=== PATIENT | female | born 1995 | race Caucasian/White ===

== ENCOUNTER 2016-09-21 03:57 | Emergency (ER) | payer OTHER ==
[~2016-09-21] VITALS: Ht 162.6 cm; Wt 116.2 kg
[2016-09-21 04:02] VITALS: TEMP 36.8; Ht 162.6 cm; Wt 116.2 kg
[2016-09-21] MEDS ORDERED: ONDANSETRON INJ 2 MG/ML 2 ML VIAL IV STA (04:17)
[2016-09-21 04:25] LABS: HEMATOCRIT 39.2 % (37-47); MEAN CORPUSCULAR HEMOGLOBIN 29.1 pg (25-34); MEAN CORPUSCULAR HGB CONC 34.2 g/dl (32-36); MEAN PLATELET VOLUME 12.4 fL (7.4-10.4); PLATELET COUNT 197 K/uL (130-400); RED BLOOD COUNT 4.61 M/uL (4.2-5.4); WHITE BLOOD COUNT 17.23 K/uL (4.8-10.8)
[2016-09-21] MEDS ORDERED: SODIUM CHLORIDE 0.9% 1000ML 1,000 ML IV ONE ×2 (04:30)
[2016-09-21 04:42] LABS: BUN/CREATININE RATIO 14.8 (10-20); CALCIUM 8.7 mg/dl (8.5-10.1); CREATININE 0.72 mg/dl (0.60-1.20)
[2016-09-21 04:44] LABS: BASO % 0.1 %; BASO ABS # 0.01 K/uL (0-0.2); COMPLETE YES; EOS % 0.2 %; IG% 0.4 %; LYMPH % 4.4 %; LYMPH ABS # 0.76 K/uL (1.2-3.4); NEUT % 90.9 %
[2016-09-21 04:45] LABS: ALB/GLOB RATIO 0.6 (0.9-2)
[2016-09-21] MEDS ORDERED: ONDANSETRON 8 MG/54 ML D5W ONE (04:48)
[2016-09-21 06:16] LABS: URINE APPEARANCE CLOUDY (CLEAR); URINE COLOR DK YELLOW; URINE EPITHELIAL CELL AUTO >30 /lpf (0-5); URINE NITRITE NEG (NEG); URINE PH 5.5 (4.5-7.5); URINE SPECIFIC GRAVITY 1.042 (1.000-1.030); UROBILINOGEN NEG (NEG); ZZUR CULT IF INDIC CLEAN CATCH YES
[2016-09-21 06:42] LABS: MANUAL MICROSCOPIC REQUIRED? NO; REVIEW REQ? YES
[2016-09-21 06:46] LABS: URINE BILIRUBIN NEG (NEG)
[2016-09-21] MEDS ORDERED: ONDA4TAB10 SL (07:01)
--- NOTE | 2016-09-21 10:34 | EMERGENCY ROOM VISIT NOTE ---
ED Visit Note First contact with patient: 09:34 Patient was signed out to me at shift change at 0700 hrs. on 09/21/2016 by Eliel Brand PA-C. The patient was reassessed multiple times and had normal saline infused. She was reassessed and noted to be feeling much better. She had not vomited since shift change nor has she developed any abdominal pain. Patient stated that she felt as if she was able to go home. I believe this is reasonable. Patient was educated upon worrisome symptoms in which to return. Patient had questions answered prior to discharge and was discharged home in good condition.
[2016-09-21 11:04] VITALS: BP 161/87; PULSE 97; O2SAT 100
--- NOTE | 2016-09-23 12:53 | EMERGENCY ROOM VISIT NOTE ---
History First contact with patient: 04:07 Chief Complaint: VOMITING Stated Complaint: VOMITING Nursing Triage Summary: Abdominal pain and vomitting since 1900. 35 weeks . History of Present Illness The patient is a 21 year old female who presents to the Emergency Room with complaints of vomiting that began 9 hours ago. The patient is having several episodes of emesis every hour. She is 35 weeks with an uncomplicated gestation to this point. The patient does not have abdominal pain, vaginal drainage, discharge, or bleeding. She does not have fever or chills. The patient is considered otherwise usually healthy and rates her discomfort an 8/ 10. Review of Systems More than 10 systems were reviewed and otherwise negative with the exception of history of present illness. Past Medical/Surgical History Medical Problems: (1) No Known Active Medical Problems Family History Patient reports no known family medical history. Social History Smoking Status: Never Smoker Marital Status: in relationship Occupation Status: unemployed Current/Historical Medications Scheduled Ondasetron Odt (Zofran Odt), 4 MG SL Q6H Allergies Coded Allergies: No Known Allergies (Unverified , 09/21/16) Physical Exam Vital Signs Date Time Temp Pulse Resp B/P Pulse Ox O2 Delivery O2 Flow Rate FiO2 09/21/16 11:04 97 18 161/87 100 09/21/16 09:40 95 18 100/74 96 Room Air 09/21/16 08:00 91 20 130/71 96 Room Air 09/21/16 06:40 87 18 134/81 97 Room Air 09/21/16 05:22 98 18 134/88 96 Room Air 09/21/16 04:02 36.8 101 16 136/81 97 Room Air Pain Rating (0-10): 0 Physical Exam VITALS: Vitals are noted on the nurse's note and reviewed by myself. Vital signs stable. GENERAL: Well-developed, well-nourished, white female who is actively vomiting on my arrival to her room. Patient is cooperative with the examination. HEAD: Normocephalic atraumatic. HEART: Regular rate and rhythm without murmurs gallops or rubs. LUNGS: Clear to auscultation bilaterally without wheezes, rales or rhonchi. No retractions or accessory muscle use. ABDOMEN: Positive normal bowel sounds x 4. Soft and consistent with 35 week gestation. No palpable tenderness appreciated. No CVA tenderness. MUSCULOSKELETAL: No muscle atrophy, erythema, or edema noted. Full range of motion without joint tenderness in all extremities. No tenderness to palpation. Normal gait. Strength 5/5 throughout. NEURO: Patient was alert and oriented to person place and time. CN II through XII grossly intact. Medical Decision & Procedures Laboratory Results 09/21/16 04:15 Red Blood Count 4.61, Mean Corpuscular Volume 85.0, Mean Corpuscular Hemoglobin 29.1, Mean Corpuscular Hemoglobin Concent 34.2, Mean Platelet Volume 12.4, Neutrophils (%) (Auto) 90.9, Lymphocytes (%) (Auto) 4.4, Monocytes (%) (Auto) 4.0, Eosinophils (%) (Auto) 0.2, Basophils (%) (Auto) 0.1, Neutrophils # (Auto) 15.67, Lymphocytes # (Auto) 0.76, Monocytes # (Auto) 0.69, Eosinophils # (Auto) 0.03, Basophils # (Auto) 0.01 09/21/16 04:15 Test 09/21/16 04:05 09/21/16 04:15 Urine Color DK YELLOW Urine Appearance CLOUDY (CLEAR) Urine pH 5.5 (4.5-7.5) Urine Specific [place] 1.042 (1.000-1.030) Urine Protein TRACE (NEG) Urine Glucose (UA) NEG (NEG) Urine Ketones 3+ (NEG) Urine Occult Blood NEG (NEG) Urine Nitrite NEG (NEG) Urine Bilirubin NEG (NEG) Urine Urobilinogen NEG (NEG) Urine Leukocyte Esterase MODERATE (NEG) Urine WBC (Auto) >30 /hpf (0-5) Urine RBC (Auto) 0-4 /hpf (0-4) Urine Hyaline Casts (Auto) /lpf (0-5) Urine Epithelial Cells (Auto) >30 /lpf (0-5) Urine Bacteria (Auto) 1+ (NEG) Urine Pathogenic Casts /lpf (0) White Blood Count 17.23 K/uL (4.8-10.8) Red Blood Count 4.61 M/uL (4.2-5.4) Hemoglobin 13.4 g/dL (12.0-16.0) Hematocrit 39.2 % (37-47) Mean Corpuscular Volume 85.0 fL (80-100) Mean Corpuscular Hemoglobin 29.1 pg (25-34) Mean Corpuscular Hemoglobin Concent 34.2 g/dl (32-36) Platelet Count 197 K/uL (130-400) Mean Platelet Volume 12.4 fL (7.4-10.4) Neutrophils (%) (Auto) 90.9 % Lymphocytes (%) (Auto) 4.4 % Monocytes (%) (Auto) 4.0 % Eosinophils (%) (Auto) 0.2 % Basophils (%) (Auto) 0.1 % Neutrophils # (Auto) 15.67 K/uL (1.4-6.5) Lymphocytes # (Auto) 0.76 K/uL (1.2-3.4) Monocytes # (Auto) 0.69 K/uL (0.11-0.59) Eosinophils # (Auto) 0.03 K/uL (0-0.5) Basophils # (Auto) 0.01 K/uL (0-0.2) RDW Standard Deviation 42.7 fL (36.4-46.3) RDW Coefficient of Variation 13.9 % (11.5-14.5) Immature Granulocyte % (Auto) 0.4 % Immature Granulocyte # (Auto) 0.07 K/uL (0.00-0.02) Anion Gap 12.0 mmol/L (3-11) Est Creatinine Clear Calc Drug Dose 153.5 ml/min Estimated GFR () 137.8 Estimated GFR (Non- 118.9 BUN/Creatinine Ratio 14.8 (10-20) Calcium Level 8.7 mg/dl (8.5-10.1) Total Bilirubin 0.7 mg/dl (0.2-1) Aspartate Amino Transf (AST/SGOT) 15 U/L (15-37) Alanine Aminotransferase (ALT/SGPT) 17 U/L (12-78) Alkaline Phosphatase 173 U/L (45-117) Total Protein 7.5 gm/dl (6.4-8.2) Albumin 2.7 gm/dl (3.4-5.0) Globulin 4.8 gm/dl (2.5-4.0) Albumin/Globulin Ratio 0.6 (0.9-2) Date/Time Source Procedure Growth Status 09/21/16 04:05 Urine , Clean Catch Urine Culture - Final MORE THAN THREE TYPES OF ORGANISMS ND... Complete Medications Administered Medications (Trade) Dose Ordered Sig/Sarath Route Start Time Stop Time Status Last Admin Dose Admin Sodium Chloride 1,000 ml @ 999 mls/hr Q1H1M ONCE IV 09/21/16 04:30 09/21/16 05:30 DC 09/21/16 04:50 999 MLS/HR Sodium Chloride (Nss 1000ml) 1,000 ml @ 999 mls/hr Q1H1M ONCE IV 09/21/16 04:30 09/21/16 05:30 DC 09/21/16 04:50 999 MLS/HR Ondansetron HCl (Zofran 8mg Iv) 8 mg STK-MED ONCE .ROUTE 09/21/16 04:48 09/21/16 04:49 DC 09/21/16 04:53 8 MG ED Course Physical exam and history were performed. Nursing notes and EMR were reviewed. Patient appears to have nausea and vomiting that began a few hours ago. IV access was established and the patient was hydrated with 2 L normal saline and given 8 mg IV Zofran. Blood work was obtained and is as above. She does have an elevated white blood cell count. She does not have a significant anemia for , bandemia, or significant electrolyte imbalance. Urine is without obvious signs of infection. On reevaluation the patient nausea was significantly improved. She did not have recurrent emesis here in the department. I do not suspect that her symptoms are distinctly related to her and she does not have abdominal pain. She likely has a foodborne illness or viral etiology. The patient IV fluids were very slow to infuse, the patient was in stable condition up until the time of shift change. I discussed the case with Moise Sandhu PA-C, who will assume care at this time. If the patient feels well, that she should be stable for discharge home with a course of Zofran. Please see Mr Sandhu's dictation for further care and disposition. The chart was completed utilizing [employer] Voice Recognition Software. Grammatical errors, random word insertions, pronoun errors, and incomplete sentences are an occasional consequence of this system due to software limitations, ambient noise, and hardware issues. Any formal questions or concerns about the content, text, or information contained within the body of this dictation should be directly addressed to the provider for clarification. . Medical Decision Differential diagnosis: Etiologies such as gastroenteritis, food borne illness, infections, appendicitis , diverticulitis, inflammatory bowel disease, obstruction, GI bleed, biliary pathology, as well as others were entertained. Impression Primary Impression: Vomiting during Departure Information Dispostion Home / Self-Care Condition GOOD Prescriptions Ondasetron Odt (ZOFRAN ODT) 4 Mg Tab 4 MG SL Q6H for Nausea, #12 TAB Prov: Eliel Brand PA-C 09/21/16 Forms HOME CARE DOCUMENTATION FORM, IMPORTANT VISIT INFORMATION Patient Instructions A Signature Page, [facility] Additional Instructions You were seen and evaluated today on an emergency basis only. This is not a substitute for, or an effort to provide, complete comprehensive medical care. It is not possible to recognize and treat all injuries or illnesses in a single emergency department visit. For this reason it is recommended that you followup with your primary care physician and DAIRY HUSBANDMAN this week for ongoing care and evaluation. Zofran 1 tablet every 6 hrs as needed for nausea. Drink plenty of fluids and remain well hydrated. You are welcome to return to the emergency department anytime with new, worsening, or concerning symptoms.
[2016-11-13] MEDS ORDERED: SENN-65 PO (10:19)
== END 2016-09-21 11:06 | disposition home or self-care (01) ==
LOC: C.EDB 03:58 → C.EDA 11:06
DX: O21.2 Late vomiting of pregnancy (principal); Z3A.35 35 weeks gestation of pregnancy

== ENCOUNTER → 2016-09-29 | Outpatient (CLI) | payer OTHER ==
[~2016-09-29] MED LIST: HYDR-5688 PO; ONDA4TAB10 SL; PRENTAB26 PO; SENN-65 PO; SULF800T23 PO
== END | disposition home or self-care (01) ==
LOC: C.LABSPEC 11:10
PROVIDERS: ATTEND Obstetrics & Gynecology
DX: Z34.03 Encounter for supervision of normal first pregnancy, third trimester (principal)

== ENCOUNTER 2016-10-01 13:31 | Inpatient (IN) | payer OTHER ==
[~2016-10-01] VITALS: Ht 160 cm; Wt 104.0 kg
[~2016-10-01 13:31] MED LIST changes: -HYDR-5688 PO; -PRENTAB26 PO; -SENN-65 PO; -SULF800T23 PO
[2016-10-01 14:30] VITALS: Ht 160 cm; Wt 104.0 kg
[2016-10-01] MEDS ORDERED: LACTATED RINGER'S 1000ML 1,000 ML IV PRN (16:47)
[2016-10-01] MEDS ORDERED: LACTATED RINGER'S 1000ML 1,000 ML IV SCH (16:47)
[2016-10-01] MEDS ORDERED: BUTORPHANOL TARTRATE 1 MG/ML VIAL IV PRN (17:00)
[2016-10-01 17:14] LABS: HEMATOCRIT 34.4 % (37-47); MEAN CELL VOLUME 82.9 fL (80-100); MEAN CORPUSCULAR HGB CONC 33.7 g/dl (32-36); PLATELET COUNT 214 K/uL (130-400); RED BLOOD COUNT 4.15 M/uL (4.2-5.4); WHITE BLOOD COUNT 10.71 K/uL (4.8-10.8)
[2016-10-01] MEDS ORDERED: PRENTAB26 PO (18:27)
--- NOTE | 2016-10-01 21:42 | Discharge Instructions ---
Discharge Instructions Admission Reason for Admission: Check Labor Discharge Discharge Diagnosis / Problem: uterine contractions Discharge Goals Goal(s): Continuing OB care Activity Recommendations Activity Limitations: resume your previous activity . Instructions / Follow-Up Instructions / Follow-Up SPECIAL CARE INSTRUCTIONS: Call Doctor if: * Regular contractions every 5 minutes or greater than 5 contractions in one hour. * Bleeding * Water breaks or is leaking * Decreased movement * Fever >100.4 degrees F * Pain not relieved by routine measures or pain medication ordered. FOLLOW UP VISIT: Return to Labor and Delivery on for /call for appointment time . Follow-up Visit with: When: Current Hospital Diet Patient's current hospital diet: Discharge Diet Recommended Diet: Regular OB Diet Pending Studies Studies pending at discharge: no Medical Emergencies . Who to Call and When: Medical Emergencies: If at any time you feel your situation is an emergency, please call 911 immediately. . Non-Emergent Contact Non-Emergency issues call your: Net Developer Architect . . "Provider Documentation" section prepared by Demetria Winters. VTE Core Measure Inpt VTE Proph given/why not?: Treatment not indicated
--- NOTE | 2016-10-05 12:49 | DISCHARGE SUMMARY ---
PRINCIPAL DIAGNOSIS: The patient is a 21-year-old G1, P0 white female who presented at 36 and 3/7 weeks with increasing pelvic pain and irregular contractions. She had minimal cervical dilation during her stay after walking for several hours. heart tones were category 1. Contractions were somewhat irregular. Cervix went from 2-3 cm to 3 cm dilated. There was descent of the head from -1 to 0 station. The patient was thought to be in early labor so admission was begun. She was given IV fluids and then 1 mg of IV Stadol. She fell asleep and contractions stopped. Cervix was relatively unchanged post the Stadol and patient is requesting to go home. She was sent home with the usual instructions of when to call for labor symptoms or decreased movement bleeding or leaking fluid. The patient expressed understanding of these and all questions were answered.
[2016-11-13] MEDS ORDERED: SENN-65 PO (10:19)
== END 2016-10-01 21:57 | disposition home or self-care (01) | DRG 782 ==
LOC: C.OPB 13:31 → C.LD 13:32 → C.OPB 16:51 → C.LD 16:51
PROVIDERS: ADMIT Obstetrics & Gynecology; ATTEND Obstetrics & Gynecology
DX: O62.9 Abnormality of forces of labor, unspecified (principal); Z3A.36 36 weeks gestation of pregnancy

== ENCOUNTER 2016-10-02 03:56 | Outpatient (CLI) | payer OTHER ==
[~2016-10-02] VITALS: Ht 160 cm; Wt 116.8 kg
[~2016-10-02 03:56] MED LIST changes: -ONDA4TAB10 SL; +PRENTAB26 PO
[2016-10-02 04:02] VITALS: Ht 160 cm; Wt 116.8 kg
[2016-10-02] MEDS ORDERED: NURSING VERBAL MED ORDER ONE (04:45)
--- NOTE | 2016-10-04 14:24 | EDITING REQUIRED CODING QUERY ---
DIAGNOSIS NEEDED To promote full compliance with coding requirements relating to patient care, physician participation is requested in all cases of director agency & strategic partnerships uncertainty. Please assist us with the question(s) below: Coding Question: The patient received care in labor and delivery on 10/02/16 as noted within the record. Please document the diagnosis that is being addressed by the medication/treatment. Provider Response: DIAGNOSIS: pelvic pain at 36 weeks gestation Irregular uterine contractions Thank you for your assistance, Marissa Stephenson - Ear Muff Assembler
[2016-11-13] MEDS ORDERED: SENN-65 PO (10:19)
== END 2016-10-02 09:17 | disposition home or self-care (01) ==
LOC: C.OPB 03:56 → C.LD 03:56 → C.OPB 09:17
PROVIDERS: ATTEND Obstetrics & Gynecology
DX: O62.9 Abnormality of forces of labor, unspecified (principal); R10.2 Pelvic and perineal pain; Z3A.36 36 weeks gestation of pregnancy

== ENCOUNTER 2016-10-03 04:42 | Outpatient (CLI) | payer OTHER ==
[~2016-10-03] VITALS: Ht 160 cm; Wt 113.6 kg
[2016-10-03 04:49] VITALS: Ht 160 cm; Wt 113.6 kg
[2016-10-03] MEDS ORDERED: LACTATED RINGER'S 1000ML 1,000 ML IV SCH (05:20)
[2016-10-03] MEDS ORDERED: LACTATED RINGER'S 1000ML 500 ML IV ONE (05:20)
[2016-11-13] MEDS ORDERED: SENN-65 PO (10:19)
== END 2016-10-03 09:07 | disposition home or self-care (01) ==
LOC: C.LD 04:42 → C.OPB 04:42
PROVIDERS: ATTEND Obstetrics & Gynecology
DX: O99.89 Other specified diseases and conditions complicating pregnancy, childbirth and the puerperium (principal); M54.5 Low back pain; Z3A.37 37 weeks gestation of pregnancy

== ENCOUNTER 2016-10-13 00:55 | Inpatient (IN) | payer OTHER ==
[~2016-10-13] VITALS: Ht 160 cm; Wt 119.5 kg
[2016-10-13] MEDS ORDERED: LACTATED RINGER'S 1000ML 1,000 ML IV PRN (01:15)
[2016-10-13] MEDS ORDERED: LACTATED RINGER'S 1000ML 1,000 ML IV SCH (01:15)
[2016-10-13] MEDS ORDERED: EpHEDrine SULFATE INJ 50 MG/ML AMP ONE (01:28)
[2016-10-13] MEDS ORDERED: BUPIVACAINE 0.25% 30 ML VIAL ONE (01:28)
[2016-10-13] MEDS ORDERED: FENTANYL 2MCG/ML ROPIV 1.25MG/ML 100ML BAG EPI ONE (01:28)
[2016-10-13] MEDS ORDERED: FENTANYL CITRATE INJ 50 MCG/1 ML 2 ML VIAL ONE (01:29)
[2016-10-13 01:35] LABS: HEMATOCRIT 35.2 % (37-47); MEAN CELL VOLUME 83.4 fL (80-100); MEAN CORPUSCULAR HEMOGLOBIN 28.2 pg (25-34); MEAN CORPUSCULAR HGB CONC 33.8 g/dl (32-36); MEAN PLATELET VOLUME 11.9 fL (7.4-10.4); PLATELET COUNT 301 K/uL (130-400); RED BLOOD COUNT 4.22 M/uL (4.2-5.4); WHITE BLOOD COUNT 15.43 K/uL (4.8-10.8)
[2016-10-13] MEDS ORDERED: LACTATED RINGER'S 1000ML 500 ML IV PRN (02:14)
[2016-10-13] MEDS ORDERED: NALOXONE HCL INJ 1 MG in SODIUM CHLORIDE 0.9% 1000ML 1,000 ML IV PRN ×4 (02:14)
[2016-10-13] MEDS ORDERED: PROMETHAZINE HCL INJ 25 MG in SODIUM CHLORIDE 0.9% 50ML 50 ML IV PRN (02:15)
[2016-10-13] MEDS ORDERED: DiphenhydrAMINE HCL 50 MG/ML VIAL IV PRN (02:15)
[2016-10-13] MEDS ORDERED: NALOXONE HCL INJ 0.4 MG/1 ML VIAL/CARP IV PRN (02:15)
[2016-10-13] MEDS ORDERED: EpHEDrine SULFATE INJ 50 MG/ML AMP IV PRN (02:15)
[2016-10-13] MEDS ORDERED: NALBUPHINE HCL INJ 10 MG/ML AMP IV PRN (02:15)
[2016-10-13] MEDS ORDERED: ONDANSETRON INJ 2 MG/ML 2 ML VIAL IV PRN (02:15)
[2016-10-13] MEDS ORDERED: FENTANYL 2MCG/ML ROPIV 1.25MG/ML 100ML BAG EPI PRN (02:15)
[2016-10-13] MEDS ORDERED: OXYTOCIN 30 UNITS/500ML NSS IV ONE (03:57)
[2016-10-13] MEDS ORDERED: ACETAMINOPHEN/CODEINE 300/30MG TAB PO PRN (04:45)
[2016-10-13] MEDS ORDERED: HYDROCORTISONE ACETATE 25 MG SUPP PR PRN (04:45)
[2016-10-13] MEDS ORDERED: SUPERCREAM 0.870 % 15GM JAR EXT PRN (04:45)
[2016-10-13] MEDS ORDERED: BENZOCAINE 20% AER SPR 82.5 GM CAN EXT PRN (04:45)
[2016-10-13] MEDS ORDERED: OXYTOCIN 30 UNITS/500ML NSS IV PRN (04:45)
[2016-10-13] MEDS ORDERED: LANOLIN OINT EXT PRN ×2 (04:45)
--- NOTE | 2016-10-13 05:05 | DELIVERY SUMMARY ---
DATE OF OPERATION: 10/13/2016 PRE-DELIVERY DIAGNOSES: 1. A 21-year-old G1, P0 at 38 weeks, 4 days. 2. Spontaneous labor. POST-DELIVERY DIAGNOSES: Same. PROCEDURE: Spontaneous vaginal delivery and repair of second-degree perineal laceration. FINDINGS: Viable male with Apgars 7and 9, weight pending. ESTIMATED BLOOD LOSS: 200 mL. DESCRIPTION OF DELIVERY: The patient progressed to complete with epidural analgesia. She spontaneously vaginally delivered a viable male from the left occiput anterior position. The head delivered. No nuchal cord was noted. The anterior shoulder followed by the posterior shoulder was delivered. The baby was placed on the mother's abdomen. The cord was doubly clamped and cut and a segment was retained for cord gases, because meconium was noted at the time of delivery. Cord blood was obtained. The placenta delivered spontaneously, intact with a 3-vessel cord. The uterus and vaginal were swept of all clots and debris. Pitocin was given. The uterus became firm. The cervix, vagina and perineum were inspected and a second-degree perineal laceration was noted and repaired in standard fashion with 3-0 Vicryl. Excellent hemostasis was achieved. Mother and baby tolerated the procedure well and are recovering in stable and good condition. All instrument, sponge and needle counts were correct x2 at the conclusion of the delivery. I attest to the content of the Intraoperative Record and any orders documented therein. Any exceptio ns are noted below.
[2016-10-13 05:32] VITALS: Ht 160 cm; Wt 119.5 kg
[2016-10-13] MEDS ORDERED: ERYTHROMYCIN OP OINT 1 GM PKT ONE (05:47)
--- NOTE | 2016-10-13 06:12 | Anesthesia Procedure Note ---
Anesthesia Epidural Removal Nt Date & Time Oct 13, 2016 at 06:12 Vital Signs Pain Intensity: 0.0 Notes Mental Status: alert / awake / arousable, participated in evaluation Nausea / Vomiting: adequately controlled Pain: adequately controlled Airway Patency, RR, SpO2: stable & adequate BP & HR: stable & adequate Hydration State: stable & adequate Neuraxial Anesthesia: was administered Anesthetic Complications: no major complications apparent, pt satisfied with anesthetic care Epidural: removed without complications, with tip intact
[2016-10-13] MEDS: DOCUSATE SODIUM 100 MG CAP PO SCH ×2 (07:57→20:00)
[2016-10-13 08:00] VITALS: BP 107/60; PULSE 80; TEMP 36.8
[2016-10-13] MEDS: IBUPROFEN 600 MG TAB PO PRN ×3 (08:53→22:04)
[2016-10-13 12:08] VITALS: BP 120/76; PULSE 62; TEMP 36.9
[2016-10-13 15:30] VITALS: BP 110/61; PULSE 80; TEMP 36.7
[2016-10-13] MEDS: ACETAMINOPHEN/CODEINE 300/30MG TAB PO PRN ×2 (16:59→23:09)
[2016-10-13 19:00] VITALS: BP 121/67; PULSE 84; TEMP 36.6
[2016-10-13 23:50] VITALS: BP 107/61; PULSE 67; TEMP 36.7
--- NOTE | 2016-10-14 06:46 | Progress Note ---
Subjective Oct 14, 2016. Subjective conversation w/ patient, physical exam Ambulation: ambulating normally Voiding: no voiding problems Passing Gas: Yes Diet Tolerance: Regular Diet Lochia: Small Feeding Type: Bottle Feeding Pain: Pain well controlled Review of Systems Constitutional: No chills, No fever Respiratory: No cough, No shortness of breath Cardiac: No chest pain Breast: No breast pain Abdomen: No nausea, No pain, No vomiting Female : No dysuria Objective Vital Signs Date Time Temp Pulse Resp B/P Pulse Ox O2 Delivery O2 Flow Rate FiO2 10/13/16 23:50 36.7 67 16 107/61 Room Air 10/13/16 23:50 Room Air 10/13/16 19:00 36.6 84 22 121/67 Room Air 10/13/16 15:30 Room Air 10/13/16 15:30 36.7 80 20 110/61 Room Air 10/13/16 12:08 36.9 62 20 120/76 Room Air 10/13/16 08:00 Room Air 10/13/16 08:00 36.8 80 18 107/60 Room Air Physical Exam General Appearance: WELL-APPEARING, WD/WN, NO APPARENT DISTRESS Respiratory/Chest: lungs clear, normal breath sounds Cardiovascular: regular rate, rhythm, no gallop, no murmur Abdomen: non tender, soft Fundus: Firm, Relation to Umbilicus (1cm below umbilicus) Extremities: no calf tenderness Laboratory Results Last 24 Hours Test 10/14/16 04:44 Medications Current Inpatient Medications Medications (Trade) Dose Ordered Sig/Sarath Route Start Time Stop Time Status Last Admin Dose Admin Lactated Ringer's (Lr 1000ml) 1,000 ml @ 125 mls/hr Q8H IV 10/13/16 01:15 10/15/16 01:14 Oxytocin (Pitocin IV) 30 units UD PRN IV 10/13/16 04:45 11/12/16 04:44 Benzocaine (Dermoplast Aero Spr) 1 appln PRN PRN EXT 10/13/16 04:45 11/12/16 04:44 Cocaine HCl (Supercream 0.870% Cr) BID PRN EXT 10/13/16 04:45 10/27/16 04:44 Hydrocortisone Acetate (Anusol Hc Supp) 25 mg BID PRN TN 10/13/16 04:45 11/12/16 04:44 Lanolin (Lanolin Oint) PRN PRN EXT 10/13/16 04:45 11/12/16 04:44 Ibuprofen (Motrin Tab) 600 mg Q4H PRN PO 10/13/16 04:45 11/12/16 04:44 10/13/16 22:04 600 MG Acetaminophen/ Codeine Phosphate (Tylenol w/ Codeine #3 Tab) 1 tab Q4H PRN PO 10/13/16 04:45 11/12/16 04:44 10/13/16 23:09 1 TAB Acetaminophen/ Codeine Phosphate (Tylenol w/ Codeine #3 Tab) 2 tab Q4H PRN PO 10/13/16 04:45 11/12/16 04:44 Bisacodyl (Dulcolax Tab) 5 mg 20 PO 10/14/16 20:00 10/14/16 20:01 Bisacodyl (Dulcolax Supp) 10 mg DAILY PRN TN 10/15/16 07:00 Docusate Sodium (coLACE CAP) 100 mg BID PO 10/13/16 08:00 11/12/16 07:59 10/13/16 20:00 100 MG Assessment and Plan Post- Day#: 1 Continue Routine Care: - Vital Signs reviewed and WNL (temp max 36.7) - Blood Type: A+, GBS Negative, Rubella Immune - Patient doing well clinically - Encourage Ambulation today - Tolerating PO Diet - Pain well controlled Resident Physician Supervision Note: I interviewed and examined the patient. Discussed with Dr. Palm and agree with findings and plan as documented in the note. Any exceptions or clarifications are listed here: [None] Documented By: Winston Wells
--- NOTE | 2016-10-14 06:47 | Discharge Instructions ---
Discharge Instructions Admission Reason for Admission: Spontaneous Onset Labor Discharge Discharge Diagnosis / Problem: Vaginal Delivery Discharge Goals Goal(s): Routine recovery after delivery Medications Continue Dispensed Medications: supercream, dermaplast, tucks, lansinoh Activity Recommendations Activity Limitations: per Instructions/Follow-up section . Instructions / Follow-Up Instructions / Follow-Up ACTIVITY RECOMMENDATIONS: * Gradual return to full activity over the next 2-3 weeks. * No lifting - nothing heavier than baby over the next 2-3 weeks. * Do not engage in vigorous exercise, sexual activity or sports until cleared by your physician. * Do not drive or operate any motorized equipment until cleared by your physician. * You may shower/bathe daily. MEDICATIONS: For discomfort or pain, you may use Acetaminophen (Tylenol), Ibuprofen (Advil), or Naproxen (Aleve) following the package directions. For constipation you may use Colace following the package directions. BREAST CARE: If you are not breast feeding: * Wear a supportive bra 24 hours a day for one to two weeks. * Avoid stimulating your breasts and nipples as much as possible during the first few weeks after delivery. * When taking a shower, have the warm water hit your back, not breasts. * When your breasts feel full, apply ice packs. Usually three to four times a day helps ease the discomfort. * Take a mild pain medication (Tylenol / Motrin) when you are uncomfortable. If breast feeding: * Use breast milk to lubricate nipples. Lansinoh cream may be used for sore nipples. You do not need to remove cream prior to breast feeding. If using a different brand of cream, check the label for directions regarding removal of cream prior to nursing. * Wear a supportive bra. * If having problems with breasts or breast feeding, call a oracle database consultant or your health care provider. EPISIOTOMY CARE: After delivery, if you have an episiotomy (stitches), the following steps will ease discomfort and aid healing. * For the first 24 hours after delivery, place ice packs next to your episiotomy to help reduce swelling. * After the first 24 hour-period, sitz baths, either portable or in the tub, are suggested. A shower with a shower arm sprayed over the episiotomy may be comforting. * Jennifer care should be done after each voiding and bowel movement. Squirt warm water from a plastic bottle over the perineum (region of the body between the anus and urinary opening) and pat dry. * Use Dermoplast to ease discomfort. Shake container. [place] directly over the episiotomy. Place a Tucks on a clean sanitary pad next to your episiotomy. SPECIAL CARE INSTRUCTIONS: When you are discharged from the hospital, it is important for you to follow the instructions listed below: * During the first week at home, you should be able to care for yourself and your baby. In addition, the usual light household activities are encouraged. * Limit your activities to the way you feel. Do not try to clean the house or move furniture. Be sensible. * If you actively engage in sports and have done so up until the time of your delivery, you may resume these activities as soon as you feel able. This may take up to one month or even longer. Use good judgment. * Continue to take your vitamins for at least six weeks after the of your baby. * Your diet need not be limited unless you were on a special diet before your delivery. Breast-feeding mothers need around 2500 calories per day and at least 64-80 ounces of fluid per day (8 to 10 glasses). * You should eat foods from the four major food groups. Crash diets or fad diets are to be avoided. Eating lean meats, fresh fruits and vegetables, low-fat dairy products, high fiber foods and a regular exercise program, will help you get back to your pre- weight without putting your health at risk. * Constipation is sometimes a problem after delivery. Take a mild laxative as needed. If breast feeding, Milk of Magnesia is acceptable to use. You may use a suppository or Fleets enema if no episiotomy. * A daily shower or tub bath is suggested. Be sure to thoroughly and gently dry the perineum. * A bloody vaginal discharge will usually continue until around four weeks post . A small amount of bleeding may continue for as long as six weeks. Vaginal discharge changes from the bright red bleeding after delivery to pink then brownish and finally yellowish-pink before becoming white and disappearing. * Bleeding may increase with activity. Your first period may come in 4-8 weeks. If you are breast feeding, your period may be delayed even longer. * [place] (sex) can begin whenever both you and your partner feel comfortable and do not have any form of genital infection. It is recommended that you wait at least six weeks for internal and external healing to occur. If you have questions, please talk to your health care practitioner. A condom should be used to prevent infection and . * Foreplay, gentle intercourse and lubrication is very important the first several times to prevent pain. A water-based lubricant such as K-Y jelly or Astroglide may be used. * If you have RH negative blood and your baby is RH positive, you will receive RHOGAM by injection prior to discharge. The nurse will give you a card to keep with you that has the date and place that you received RHOGAM after delivery. * During your care, you had a Rubella screen done to check for the presence of rubella antibodies in your blood. If your test was negative, you will receive a Rubella vaccine prior to discharge. This vaccine may cause a fever, soreness at the injection site and flu-like symptoms. If these symptoms persist, notify your health care practitioner. is not advised for one month after a Rubella vaccine. * Verbalizes understanding of car seat law as reviewed with patient nursing. * Car Seat hand-out given and reviewed with patient by nursing. * Shaken baby information reviewed with patient by nursing. Call you doctor if: * Heavy bleeding (saturating several pads an hour) or passing clots the size of your fist. * A fever >101 degrees F (38.3 degrees C) on two occasions four hours apart and /or chills. * Unusual pain in the pelvic or vaginal areas. * "Baby Blues" lasting longer than two weeks. If you have any questions or concerns, call your health care practitioner at . FOLLOW UP VISIT: * Please call the office at to schedule a 6 week examination. It is important you keep this appointment. It is important for you to make arrangements for either yearly or twice yearly check-ups thereafter. Current Hospital Diet Patient's current hospital diet: Regular OB Diet Discharge Diet Recommended Diet: Regular Diet Pending Studies Studies pending at discharge: no Medical Emergencies . Who to Call and When: Medical Emergencies: If at any time you feel your situation is an emergency, please call 911 immediately. . Non-Emergent Contact Non-Emergency issues call your: [employer]inder . . "Provider Documentation" section prepared by Ronal Palm. VTE Core Measure Inpt VTE Proph given/why not?: Treatment not indicated
[2016-10-14] MEDS: IBUPROFEN 600 MG TAB PO PRN ×4 (06:58→20:13)
[2016-10-14 07:03] LABS: HEMATOCRIT 32.1 % (37-47)
[2016-10-14 07:48] VITALS: BP 119/64; PULSE 74; TEMP 36.6
[2016-10-14] MEDS: DOCUSATE SODIUM 100 MG CAP PO SCH ×2 (08:35→20:12)
[2016-10-14 15:30] VITALS: BP 112/57; PULSE 73; TEMP 36.5
[2016-10-14 19:25] VITALS: BP 113/59; PULSE 84; TEMP 36.5
[2016-10-14] MEDS ORDERED: BISACODYL 5 MG TABEC PO SCH (20:00)
[2016-10-14 23:30] VITALS: BP 117/67; PULSE 84; TEMP 36.9
[2016-10-15] MEDS: IBUPROFEN 600 MG TAB PO PRN ×2 (01:32→08:14)
[2016-10-15 07:00] VITALS: BP 104/49; PULSE 70; TEMP 36.9; O2SAT 98
[2016-10-15] MEDS ORDERED: BISACODYL 10 MG SUPP PR PRN (07:00)
[2016-10-15] MEDS: DOCUSATE SODIUM 100 MG CAP PO SCH (08:13)
--- NOTE | 2016-10-15 09:18 | Progress Note ---
Subjective Oct 15, 2016. Subjective conversation w/ patient, physical exam, chart review, lab review Ambulation: ambulating normally Voiding: no voiding problems Passing Gas: Yes Diet Tolerance: Regular Diet Objective Vital Signs Date Time Temp Pulse Resp B/P Pulse Ox O2 Delivery O2 Flow Rate FiO2 10/14/16 23:30 36.9 84 18 117/67 Room Air 10/14/16 23:30 Room Air 10/14/16 19:25 36.5 84 18 113/59 Room Air 10/14/16 15:30 36.5 73 20 112/57 Room Air 10/14/16 15:30 Room Air Physical Exam General Appearance: WELL-APPEARING Abdomen: non tender Fundus: Firm Extremities: no calf tenderness Assessment and Plan Post- Day#: 2 Continue Routine Care: home
[2016-10-15 12:20] VITALS: BP_DIAS 49; PULSE 70; TEMP 36.9
[2016-11-13] MEDS ORDERED: SENN-65 PO (10:19)
== END 2016-10-15 12:20 | disposition home or self-care (01) | DRG 775 ==
LOC: C.OPB 00:55 → C.LD 00:59 → C.OPB 01:20 → C.OBG 07:01
PROVIDERS: ADMIT Obstetrics & Gynecology; ATTEND Obstetrics & Gynecology
PROC: 0KQM0ZZ Repair Perineum Muscle, Open Approach (ICD-10-PCS; principal; 2016-10-13)
PROC: 10E0XZZ Delivery of Products of Conception, External Approach (ICD-10-PCS; principal; 2016-10-13)
DX: O99.02 Anemia complicating childbirth (principal); Z68.42 Body mass index [BMI] 45.0-49.9, adult; Z37.0 Single live birth; O70.1 Second degree perineal laceration during delivery; D64.9 Anemia, unspecified; O99.214 Obesity complicating childbirth; Z3A.38 38 weeks gestation of pregnancy

== ENCOUNTER 2016-11-08 08:37 | Emergency (ER) | payer OTHER ==
[~2016-11-08] VITALS: Ht 160 cm; Wt 106.9 kg
[2016-11-08 08:40] VITALS: TEMP 36.6; Ht 160 cm; Wt 106.9 kg
[2016-11-08] MEDS ORDERED: ONDANSETRON INJ 2 MG/ML 2 ML VIAL IV STA ×2 (09:11→09:19)
[2016-11-08] MEDS ORDERED: SODIUM CHLORIDE 0.9% 1000ML 1,000 ML IV ONE (09:15)
[2016-11-08] MEDS ORDERED: MoRPHine SULFATE 4 MG/ML 1 ML CARP\\VIAL IV ONE ×2 (09:30→13:45)
[2016-11-08 09:48] LABS: BASO % 0.1 %; BASO ABS # 0.01 K/uL (0-0.2); COMPLETE YES; EOS % 1.7 %; HEMATOCRIT 38.7 % (37-47); IG% 0.2 %; LYMPH % 15.2 %; LYMPH ABS # 2.03 K/uL (1.2-3.4); MEAN CELL VOLUME 84.3 fL (80-100); MEAN CORPUSCULAR HEMOGLOBIN 27.7 pg (25-34); MEAN CORPUSCULAR HGB CONC 32.8 g/dl (32-36); MEAN PLATELET VOLUME 11.8 fL (7.4-10.4); MONO % 6.2 %; NEUT % 76.6 %; PLATELET COUNT 328 K/uL (130-400); RED BLOOD COUNT 4.59 M/uL (4.2-5.4); WHITE BLOOD COUNT 13.32 K/uL (4.8-10.8)
[2016-11-08 09:57] LABS: BUN/CREATININE RATIO 12.5 (10-20); CALCIUM 8.8 mg/dl (8.5-10.1); CREATININE 0.83 mg/dl (0.60-1.20); POTASSIUM 3.7 mmol/L (3.5-5.1)
[2016-11-08 10:00] LABS: ALB/GLOB RATIO 0.9 (0.9-2)
[2016-11-08 11:19] LABS: URINE APPEARANCE TURBID (CLEAR); URINE COLOR DK YELLOW; URINE EPITHELIAL CELL AUTO >30 /lpf (0-5); URINE NITRITE NEG (NEG); URINE SPECIFIC GRAVITY 1.033 (1.000-1.030); UROBILINOGEN NEG (NEG); ZZUR CULT IF INDIC CLEAN CATCH YES
[2016-11-08 11:30] LABS: MANUAL MICROSCOPIC REQUIRED? NO; REVIEW REQ? YES; URINE BILIRUBIN NEG (NEG)
--- NOTE | 2016-11-08 11:57 | DIAGNOSTIC IMAGING REPORT ---
CT SCAN OF THE ABDOMEN AND PELVIS WITHOUT CONTRAST CLINICAL HISTORY: Right flank pain COMPARISON STUDY: No previous studies for comparison. TECHNIQUE: CT scan of the abdomen and pelvis was performed from the lung bases to the proximal femurs. Images are reviewed in the axial, sagittal, and coronal planes. IV contrast was not administered for this examination. CT DOSE: 1255.13 mGy.cm FINDINGS: Lower chest: The heart is normal in size and configuration, without pericardial effusion. The lung bases and pleural spaces are clear. Liver: The unenhanced liver is normal in size, contour, and attenuation. There is no intrahepatic biliary ductal dilatation. Gallbladder: Mildly distended. No calculi are visualized. Spleen: Normal in size and attenuation. Pancreas: Unremarkable. Adrenal glands: Unremarkable. Kidneys: No renal, ureteral, or bladder calculi are visualized. Bowel: There are no transition zones indicate bowel obstruction. The appendix appears normal. There is no acute diverticulitis. Bowel evaluation is limited given the lack of intravenous and oral contrast. Peritoneum: There is no intraperitoneal free air or abdominal ascites. Vasculature: The abdominal aorta is normal in course and caliber. Adenopathy: None. Pelvic viscera: The bladder, and pelvic viscera are unremarkable. Skeletal structures: No destructive osseous lesions are seen. IMPRESSION: 1. No renal, ureteral, or bladder calculi identified 2. No evidence of bowel obstruction. No evidence of free air 3. Normal appendix. No evidence of acute diverticulitis. 4. Mild gallbladder distention Electronically signed by: Franck Christian M.D. 11/08/2016 11:56 AM Dictated Date/Time: 11/08/2016 11:50 AM
--- NOTE | 2016-11-08 12:14 | DIAGNOSTIC IMAGING REPORT ---
Right upper quadrant ultrasound GALLBLADDER-ABD LIMITED CLINICAL HISTORY: RUQ/Flank pain pain. Nausea. TECHNIQUE: Ultrasound COMPARISON STUDY: None FINDINGS: Multiple small punctate gallstones. Normal caliber gallbladder wall. No pericholecystic fluid. Mild prominence of the extra hepatic common bile duct 9 mm. Intrahepatic ducts are unremarkable. Liver is homogeneous. Pancreas and right kidney are unremarkable. IMPRESSION: 1. Multiple small gallstones. 2. Moderate prominence of the extra hepatic common bile duct to 9 mm. 3. Study is otherwise negative Electronically signed by: Francisco Javier Ayala M.D. 11/08/2016 12:13 PM Dictated Date/Time: 11/08/2016 12:09 PM
[2016-11-08 13:37] VITALS: BP 122/61; PULSE 64; O2SAT 96
[2016-11-08] MEDS ORDERED: HYDR-5688 PO (13:49)
[2016-11-08] MEDS ORDERED: SULF800T23 PO (13:49)
[2016-11-08] MEDS ORDERED: SULFAMETHOXAZOLE/TRIMETHOPRIM DS 800/160MG TAB PO ONE (14:00)
--- NOTE | 2016-11-08 16:30 | EMERGENCY ROOM VISIT NOTE ---
History First contact with patient: 08:44 Chief Complaint: FLANK PAIN Stated Complaint: PAIN IN RT SIDE, POSSIBLE KIDNEY STONE History of Present Illness The patient is a 21 year old female who presents to the Emergency Room with complaints of right-sided flank pain worsening over the past 2-3 days. Patient considers herself usually healthy but is concerned about kidney stone. The patient recently had a child about one month ago and is currently breast- feeding. Because of this she has not taken much medicine [id number]. She did try a small amount of ibuprofen and Tylenol without relief. The patient does not have any lower abdominal or vaginal complaints. She has been without fever or dysuria, although she does have some urinary frequency. The patient states she had a similar episode about 6 weeks ago where she had a urine performed that did show some hematuria. She states that the symptoms resolved spontaneously. She is nauseated without vomiting. She does not have a history of previous abdominal surgeries. She rates her current discomfort an 8/10. Review of Systems More than 10 systems were reviewed and otherwise negative with the exception of history of present illness. Past Medical/Surgical History Medical Problems: (1) Back pain affecting in third trimester (2) First trimester (3) Spontaneous onset of labor (4) Vomiting during Family History Patient reports no known family medical history. Social History Smoking Status: Never Smoker Marital Status: in relationship Occupation Status: unemployed Current/Historical Medications Scheduled Sulfamethoxazole-Trimethoprim (Bactrim Ds 800MG/160MG), 1 TAB PO BID Scheduled PRN Hydrocodone/Acetaminophen 5MG/325MG (Moro 5MG/325MG), 1-2 TABLET PO Q6 PRN for Pain Allergies Coded Allergies: No Known Allergies (Unverified , 11/08/16) Physical Exam Vital Signs Date Time Temp Pulse Resp B/P Pulse Ox O2 Delivery O2 Flow Rate FiO2 11/08/16 13:37 64 16 122/61 96 Room Air 11/08/16 10:31 58 16 106/50 95 Room Air 11/08/16 08:40 36.6 53 18 98/65 97 Room Air Pain Rating (0-10): 3.0 Physical Exam VITALS: Vitals are noted on the nurse's note and reviewed by myself. Vital signs stable. GENERAL: Well-developed, well-nourished, obese female, who is in no acute distress and resting comfortably. Patient is cooperative with the examination. She is actively breast-feeding her infant upon my arrival to the room HEAD: Normocephalic atraumatic. NECK: Supple without nuchal rigidity. No lymphadenopathy. No thyromegaly. Cervical spine is nontender. HEART: Regular rate and rhythm without murmurs gallops or rubs. LUNGS: Clear to auscultation bilaterally without wheezes, rales or rhonchi. No retractions or accessory muscle use. ABDOMEN: Positive normal bowel sounds x 4. Soft with mild right lateral abdominal tenderness and right CVA tenderness. No distinct right upper quadrant tenderness. No periumbilical or lower abdominal tenderness. No rebound or guarding. MUSCULOSKELETAL: No muscle atrophy, erythema, or edema noted. Full range of motion without joint tenderness in all extremities. Medical Decision & Procedures ER Provider Diagnostic Interpretation: Right upper quadrant ultrasound GALLBLADDER-ABD LIMITED CLINICAL HISTORY: RUQ/Flank pain pain. Nausea. TECHNIQUE: Ultrasound COMPARISON STUDY: None FINDINGS: Multiple small punctate gallstones. Normal caliber gallbladder wall. No pericholecystic fluid. Mild prominence of the extra hepatic common bile duct 9 mm. Intrahepatic ducts are unremarkable. Liver is homogeneous. Pancreas and right kidney are unremarkable. IMPRESSION: 1. Multiple small gallstones. 2. Moderate prominence of the extra hepatic common bile duct to 9 mm. 3. Study is otherwise negative CT SCAN OF THE ABDOMEN AND PELVIS WITHOUT CONTRAST CLINICAL HISTORY: Right flank pain COMPARISON STUDY: No previous studies for comparison. TECHNIQUE: CT scan of the abdomen and pelvis was performed from the lung bases to the proximal femurs. Images are reviewed in the axial, sagittal, and coronal planes. IV contrast was not administered for this examination. CT DOSE: 1255.13 mGy.cm FINDINGS: Lower chest: The heart is normal in size and configuration, without pericardial effusion. The lung bases and pleural spaces are clear. Liver: The unenhanced liver is normal in size, contour, and attenuation. There is no intrahepatic biliary ductal dilatation. Gallbladder: Mildly distended. No calculi are visualized. Spleen: Normal in size and attenuation. Pancreas: Unremarkable. Adrenal glands: Unremarkable. Kidneys: No renal, ureteral, or bladder calculi are visualized. Bowel: There are no transition zones indicate bowel obstruction. The appendix appears normal. There is no acute diverticulitis. Bowel evaluation is limited given the lack of intravenous and oral contrast. Peritoneum: There is no intraperitoneal free air or abdominal ascites. Vasculature: The abdominal aorta is normal in course and caliber. Adenopathy: None. Pelvic viscera: The bladder, and pelvic viscera are unremarkable. Skeletal structures: No destructive osseous lesions are seen. IMPRESSION: 1. No renal, ureteral, or bladder calculi identified 2. No evidence of bowel obstruction. No evidence of free air 3. Normal appendix. No evidence of acute diverticulitis. 4. Mild gallbladder distention Laboratory Results 11/08/16 09:00 Red Blood Count 4.59, Mean Corpuscular Volume 84.3, Mean Corpuscular Hemoglobin 27.7, Mean Corpuscular Hemoglobin Concent 32.8, Mean Platelet Volume 11.8, Neutrophils (%) (Auto) 76.6, Lymphocytes (%) (Auto) 15.2, Monocytes (%) (Auto) 6.2, Eosinophils (%) (Auto) 1.7, Basophils (%) (Auto) 0.1, Neutrophils # (Auto) 10.21, Lymphocytes # (Auto) 2.03, Monocytes # (Auto) 0.82, Eosinophils # (Auto) 0.23, Basophils # (Auto) 0.01 11/08/16 09:00 Test 11/08/16 09:00 11/08/16 09:50 White Blood Count 13.32 K/uL (4.8-10.8) Red Blood Count 4.59 M/uL (4.2-5.4) Hemoglobin 12.7 g/dL (12.0-16.0) Hematocrit 38.7 % (37-47) Mean Corpuscular Volume 84.3 fL (80-100) Mean Corpuscular Hemoglobin 27.7 pg (25-34) Mean Corpuscular Hemoglobin Concent 32.8 g/dl (32-36) Platelet Count 328 K/uL (130-400) Mean Platelet Volume 11.8 fL (7.4-10.4) Neutrophils (%) (Auto) 76.6 % Lymphocytes (%) (Auto) 15.2 % Monocytes (%) (Auto) 6.2 % Eosinophils (%) (Auto) 1.7 % Basophils (%) (Auto) 0.1 % Neutrophils # (Auto) 10.21 K/uL (1.4-6.5) Lymphocytes # (Auto) 2.03 K/uL (1.2-3.4) Monocytes # (Auto) 0.82 K/uL (0.11-0.59) Eosinophils # (Auto) 0.23 K/uL (0-0.5) Basophils # (Auto) 0.01 K/uL (0-0.2) RDW Standard Deviation 43.8 fL (36.4-46.3) RDW Coefficient of Variation 14.3 % (11.5-14.5) Immature Granulocyte % (Auto) 0.2 % Immature Granulocyte # (Auto) 0.02 K/uL (0.00-0.02) Anion Gap 10.0 mmol/L (3-11) Est Creatinine Clear Calc Drug Dose 124.5 ml/min Estimated GFR () 116.0 Estimated GFR (Non- 100.1 BUN/Creatinine Ratio 12.5 (10-20) Calcium Level 8.8 mg/dl (8.5-10.1) Total Bilirubin 1.0 mg/dl (0.2-1) Aspartate Amino Transf (AST/SGOT) 53 U/L (15-37) Alanine Aminotransferase (ALT/SGPT) 34 U/L (12-78) Alkaline Phosphatase 124 U/L (45-117) Total Protein 7.6 gm/dl (6.4-8.2) Albumin 3.5 gm/dl (3.4-5.0) Globulin 4.1 gm/dl (2.5-4.0) Albumin/Globulin Ratio 0.9 (0.9-2) Lipase 125 U/L (73-393) Urine Color DK YELLOW Urine Appearance TURBID (CLEAR) Urine pH 5.0 (4.5-7.5) Urine Specific [place] 1.033 (1.000-1.030) Urine Protein 1+ (NEG) Urine Glucose (UA) NEG (NEG) Urine Ketones NEG (NEG) Urine Occult Blood 3+ (NEG) Urine Nitrite NEG (NEG) Urine Bilirubin NEG (NEG) Urine Urobilinogen NEG (NEG) Urine Leukocyte Esterase MODERATE (NEG) Urine WBC (Auto) >30 /hpf (0-5) Urine RBC (Auto) 10-30 /hpf (0-4) Urine Hyaline Casts (Auto) 1-5 /lpf (0-5) Urine Epithelial Cells (Auto) >30 /lpf (0-5) Urine Bacteria (Auto) 3+ (NEG) Urine Test NEG (NEG) Medications Administered Medications (Trade) Dose Ordered Sig/Sarath Route Start Time Stop Time Status Last Admin Dose Admin Sodium Chloride (Nss 1000ml) 1,000 ml @ 999 mls/hr Q1H1M ONCE IV 11/08/16 09:15 11/08/16 10:15 DC 11/08/16 09:57 999 MLS/HR Ondansetron HCl (Zofran Inj) 4 mg NOW STAT IV 11/08/16 09:11 11/08/16 09:13 DC 11/08/16 09:56 4 MG Morphine Sulfate (MoRPHine SULFATE INJ) 4 mg NOW ONCE IV 11/08/16 09:30 11/08/16 09:31 DC 11/08/16 09:56 4 MG Morphine Sulfate (MoRPHine SULFATE INJ) 4 mg NOW ONCE IV 11/08/16 13:45 11/08/16 13:46 DC 11/08/16 13:54 4 MG Trimethoprim/ Sulfamethoxazole (Septra Ds 800/ 160MG Tab) 1 tab NOW ONCE PO 11/08/16 14:00 11/08/16 14:01 DC 11/08/16 13:53 1 TAB ED Course Physical exam and history were performed. Nursing notes and EMR were reviewed. Patient appears to have right-sided abdominal pain that is very much along the right side of her flank. She also has some mild right CVA tenderness without other abdominal pain. The patient does not appear toxic on examination. IV access was established and labs were obtained. The patient was hydrated with normal saline and given IV morphine and IV Zofran for her discomfort. Because of the location of her pain and concern for kidney stones, a CT scan of the abdomen and pelvis was performed. Additionally an ultrasound for her gallbladder was done. The patient's blood work is as above and was reviewed. She does have a mildly elevated white blood cell count. She is without significant anemia or gross electrolyte imbalance. Her urine is highly suggestive of an infectious process with culture pending. The patient CT scan does not show distinct acute abdominal process. Her ultrasound does show some gallstones but no acute cholecystitis. She also has a mild dilatation of the common bile duct. Overall the patient had significant improvement of her discomfort after the above interventions. Clinically her urine studies are more concerning for a pyelonephritis than a cholecystitis, as she does not have distinct cholecystitis on either ultrasound or CT scan. I do suspect that she has some biliary colic at baseline, and explained that at some point she will likely need her gallbladder taken out. This does not need to occur emergently, and she can follow with her primary care physician or a general surgeon for further management. I discussed options of care with the patient, and will provide her a course of Bactrim. I will also give her a short course of Vicodin for pain control. I discussed possible passing of these medications in breast milk. The patient was otherwise invited back to the emergency department with any new, worsening, or concerning symptoms. She voiced understanding of this plan and rated her discomfort a 2/10 at the time of departure. The chart was completed utilizing [employer] Voice Recognition Software. Grammatical errors, random word insertions, pronoun errors, and incomplete sentences are an occasional consequence of this system due to software limitations, ambient noise, and hardware issues. Any formal questions or concerns about the content, text, or information contained within the body of this dictation should be directly addressed to the provider for clarification. . Medical Decision Differential diagnosis: Etiologies such as appendicitis, diverticulitis, PUD, biliary pathology, UTI, pancreatitis, obstruction, mesenteric ischemia, aortic pathology, infections, inflammatory bowel disease, renal colic, as well as others were entertained. Impression Primary Impression: Acute pyelonephritis Additional Impression: Biliary colic Departure Information Dispostion Home / Self-Care Condition GOOD Prescriptions Hydrocodone/Acetaminophen 5MG/325MG (Moro 5MG/325MG) Tab 1-2 TABLET PO Q6 Y for Pain, #12 TAB For Initial Treatment Prov: Eliel Brand PA-C 11/08/16 Sulfamethoxazole-Trimethoprim (Bactrim Ds 800MG/160MG) 1 Tab Tab 1 TAB PO BID for 10 Days, #20 TAB Prov: Eliel Brand PA-C 11/08/16 Forms HOME CARE DOCUMENTATION FORM, IMPORTANT VISIT INFORMATION Patient Instructions [facility] Additional Instructions You were seen and evaluated today on an emergency basis only. This is not a substitute for, or an effort to provide, complete comprehensive medical care. It is not possible to recognize and treat all injuries or illnesses in a single emergency department visit. For this reason it is recommended that you followup with Your primary care physician in the next 2-3 days for recheck of your condition. For baseline pain relief you may alternate ibuprofen and acetaminophen every 4 hours for pain control. Take 600 mg ibuprofen (Advil) and then 4 hours later take 1000 mg acetaminophen (Tylenol). Do not take more than 3000 mg acetaminophen in a single day. [place] (hydrocodone/acetaminophen) 5/325 mg every 6 hours as needed for worsening breakthrough pain. Do not drink or drive on [place]. This medication will likely make you tired. Do not take [place] and Tylenol at the same time as both contain acetaminophen. [place] may cause constipation. You may wish to take an [id number] stool softener like Colace if this occurs. Trimethoprim-Sulfamethoxazole(Bactrim DS): Take one pill twice daily for 10 days for your skin infection. All antibiotics can cause diarrhea. If this occurs and you feel worse or it does not resolve in 1-2 days follow up with your doctor or return to the Emergency Department as this could be signs of serious underlying problems. Any medication can cause an allergic reaction, stop the pills immediately and return to the ER for rash, hives, breathing difficulties, or swelling. You appear to have gallstones in the gallbladder. This can lead to gallbladder issues in the future. You may wish to discuss this with your primary care physician or with the general surgeon. You are welcome to return to the emergency department anytime with new, worsening, or concerning symptoms. Problem Qualifiers
[2016-11-13] MEDS ORDERED: SENN-65 PO (10:19)
== END 2016-11-08 14:07 | disposition home or self-care (01) ==
LOC: C.EDB 08:39
DX: N10 Acute pyelonephritis (principal); K80.50 Calculus of bile duct without cholangitis or cholecystitis without obstruction

== ENCOUNTER 2016-11-08 20:52 | Inpatient (IN) | payer OTHER ==
[~2016-11-08] VITALS: Ht 160 cm; Wt 106.0 kg
[~2016-11-08 20:52] MED LIST changes: +HYDR-5688 PO; +SULF800T23 PO
[2016-11-08] MEDS ORDERED: MoRPHine SULFATE 4 MG/ML 1 ML CARP\\VIAL IV STA ×2 (21:43→22:33)
[2016-11-08] MEDS ORDERED: SODIUM CHLORIDE 0.9% 1000ML 1,000 ML IV ONE (21:43)
[2016-11-08] MEDS ORDERED: SODIUM CHLORIDE 0.9% 1000ML 1,000 ML IV STA (21:43)
[2016-11-08] MEDS ORDERED: ONDANSETRON INJ 2 MG/ML 2 ML VIAL IV STA (21:43)
[2016-11-08 22:17] LABS: COMPLETE YES; EOS % 0.2 %; HEMATOCRIT 40.7 % (37-47); IG% 0.3 %; LYMPH % 6.9 %; LYMPH ABS # 0.89 K/uL (1.2-3.4); MEAN CELL VOLUME 81.9 fL (80-100); MEAN CORPUSCULAR HEMOGLOBIN 27.4 pg (25-34); MEAN CORPUSCULAR HGB CONC 33.4 g/dl (32-36); MEAN PLATELET VOLUME 11.2 fL (7.4-10.4); MONO % 2.8 %; NEUT % 89.8 %; PLATELET COUNT 325 K/uL (130-400); RED BLOOD COUNT 4.97 M/uL (4.2-5.4); WHITE BLOOD COUNT 12.81 K/uL (4.8-10.8)
--- NOTE | 2016-11-08 22:28 | EMERGENCY ROOM VISIT NOTE ---
History Report prepared by Felipe: Marita Damon Under the Supervision of: Dr. João Platt M.D. First contact with patient: 21:28 Chief Complaint: ABDOMINAL PAIN Stated Complaint: ABDOMINAL PAIN, KIDNEY INFECTION, GALLBLADDER PAIN Nursing Triage Summary: Pt seen here this morning, dx with gall stones and a kidney infection. Pt is 3.5 wks post , vaginal delivery. Pt states continues to have n/v and unable to keep pain meds and abx down. History of Present Illness The patient is a 21 year old female who presents to the Emergency Room with complaints of worsening abdominal pain since this morning. The patient was evaluated in the ED earlier today and diagnosed with a kidney infection and gallstones. She had morphine and antiemetics at that time and felt better. She was discharged home with antibiotics and pain medication. Mother states that since they got home the patient has been nauseated and vomiting. She has been unable to keep down food, fluids, or her medications. The patient is complaining of right-sided abdominal pain and right mid back pain that she rates as a 10/10 in severity. She denies any swelling in her legs. The patient is 3 weeks . She had a normal vaginal delivery. She is currently breast feeding. 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 A total of 10 systems reviewed and were otherwise negative. Past Medical & Surgical Medical Problems: (1) Acute pancreatitis (2) Back pain affecting in third trimester (3) First trimester (4) Spontaneous onset of labor (5) Vomiting during Old medical records were reviewed. Nurse's notes were reviewed and I agree with. Family History Patient reports no known family medical history. Social History Smoking Status: Never Smoker Drug Use: none Marital Status: in relationship Housing Status: lives with family Occupation Status: unemployed Current/Historical Medications Scheduled Sulfamethoxazole-Trimethoprim (Bactrim Ds 800MG/160MG), 1 TAB PO BID Scheduled PRN Hydrocodone/Acetaminophen 5MG/325MG ([place] 5MG/325MG), 1-2 TABLET PO Q6 PRN for Pain Allergies Coded Allergies: No Known Allergies (Unverified , 2/22/17) Physical Exam Vital Signs Date Time Temp Pulse Resp B/P Pulse Ox O2 Delivery O2 Flow Rate FiO2 11/08/16 23:58 85 20 140/68 95 Room Air 11/08/16 21:00 36.7 67 20 114/71 98 Room Air Physical Exam General: Well developed well nourished uncomfortable appearing young female complaining of abdominal pain and nausea, breathing comfortably on room air. Normal speech HEENT: Normal cephalic atraumatic. Pupils are equal round and reactive to light. Sclera anicteric. Extraocular movements are intact. Oropharynx is pink with moist mucous membranes. No swelling of the mouth lips or tongue. Neck: Supple with a midline trachea. No meningeal signs or stiffness, no JVD or bruits. No Stridor. Chest: Clear to auscultation bilaterally. No wheezes or rhonchi. No increased work of breathing. Heart: regular rate and rhythm. Abdomen: Soft, mild tenderness in the lower abdomen, nondistended without rebound guarding or rigidity. Extremities: No cyanosis clubbing or edema. No calf tenderness or assymetry Spine/Back. Non tender to palpation. Minimal tenderness in the right flank. Skin: Good turgor without rashes. Neurologic exam: Cranial nerves two through 12 are intact. Motor and sensation are intact and symmetrical throughout. Medical Decision & Procedures Laboratory Results 11/08/16 22:00 Red Blood Count 4.97, Mean Corpuscular Volume 81.9, Mean Corpuscular Hemoglobin 27.4, Mean Corpuscular Hemoglobin Concent 33.4, Mean Platelet Volume 11.2, Neutrophils (%) (Auto) 89.8, Lymphocytes (%) (Auto) 6.9, Monocytes (%) (Auto) 2.8, Eosinophils (%) (Auto) 0.2, Basophils (%) (Auto) 0.0, Neutrophils # (Auto) 11.50, Lymphocytes # (Auto) 0.89, Monocytes # (Auto) 0.36, Eosinophils # (Auto) 0.02, Basophils # (Auto) 0.00 11/08/16 22:00 Test 11/08/16 22:00 White Blood Count 12.81 K/uL (4.8-10.8) Red Blood Count 4.97 M/uL (4.2-5.4) Hemoglobin 13.6 g/dL (12.0-16.0) Hematocrit 40.7 % (37-47) Mean Corpuscular Volume 81.9 fL (80-100) Mean Corpuscular Hemoglobin 27.4 pg (25-34) Mean Corpuscular Hemoglobin Concent 33.4 g/dl (32-36) Platelet Count 325 K/uL (130-400) Mean Platelet Volume 11.2 fL (7.4-10.4) Neutrophils (%) (Auto) 89.8 % Lymphocytes (%) (Auto) 6.9 % Monocytes (%) (Auto) 2.8 % Eosinophils (%) (Auto) 0.2 % Basophils (%) (Auto) 0.0 % Neutrophils # (Auto) 11.50 K/uL (1.4-6.5) Lymphocytes # (Auto) 0.89 K/uL (1.2-3.4) Monocytes # (Auto) 0.36 K/uL (0.11-0.59) Eosinophils # (Auto) 0.02 K/uL (0-0.5) Basophils # (Auto) 0.00 K/uL (0-0.2) RDW Standard Deviation 42.4 fL (36.4-46.3) RDW Coefficient of Variation 14.1 % (11.5-14.5) Immature Granulocyte % (Auto) 0.3 % Immature Granulocyte # (Auto) 0.04 K/uL (0.00-0.02) Anion Gap 9.0 mmol/L (3-11) Est Creatinine Clear Calc Drug Dose 119.6 ml/min Estimated GFR () 111.1 Estimated GFR (Non- 95.9 BUN/Creatinine Ratio 10.1 (10-20) Calcium Level 8.9 mg/dl (8.5-10.1) Total Bilirubin 1.5 mg/dl (0.2-1) Direct Bilirubin 0.5 mg/dl (0-0.2) Aspartate Amino Transf (AST/SGOT) 59 U/L (15-37) Alanine Aminotransferase (ALT/SGPT) 55 U/L (12-78) Alkaline Phosphatase 147 U/L (45-117) Total Protein 8.0 gm/dl (6.4-8.2) Albumin 3.5 gm/dl (3.4-5.0) Lipase 25475 U/L (73-393) Laboratory studies as stated above per my review. Medications Administered Medications (Trade) Dose Ordered Sig/Sarath Route Start Time Stop Time Status Last Admin Dose Admin Sodium Chloride 1,000 ml @ 999 mls/hr Q1H1M STAT IV 11/08/16 21:43 11/08/16 22:43 DC 11/08/16 22:16 999 MLS/HR Sodium Chloride (Nss 1000ml) 1,000 ml @ 200 mls/hr Q5H ONCE IV 11/08/16 21:43 11/09/16 02:42 11/08/16 22:16 200 MLS/HR Ondansetron HCl (Zofran Inj) 4 mg NOW STAT IV 11/08/16 21:43 11/08/16 21:44 DC 11/08/16 22:16 4 MG Morphine Sulfate (MoRPHine SULFATE INJ) 4 mg NOW STAT IV 11/08/16 21:43 11/08/16 21:44 DC 11/08/16 22:15 4 MG Morphine Sulfate (MoRPHine SULFATE INJ) 4 mg NOW STAT IV 11/08/16 22:33 11/08/16 22:34 DC 11/08/16 22:40 4 MG Piperacillin Sod/ Tazobactam Sod (Zosyn Iv) 4.5 gm NOW STAT IV 11/08/16 22:42 11/08/16 22:44 DC 11/08/16 23:56 4.5 GM ED Course 2130: Past medical records reviewed. The patient was evaluated in room C12B, and a complete history and physical examination were performed. 2143: Morphine sulfate 4 mg IV, Zofran 4 mg IV, NSS 1000 ml @ 200 mls/hr IV, NSS 1000 ml @ 999 mls/hr IV 2233: Morphine sulfate 4 mg IV 2242: Zosyn 4.5 gm IV 2311: I reassessed the patient at this time. She is feeling better and resting comfortably. I discussed the results and treatment plan with the patient. I answered all pertaining questions that she had. She expressed understanding and verbalized agreement. 2337: I spoke with Dr. Adams. We discussed the patients results and treatment plan. The patient will be evaluated by the [facility] for further management. Medical Decision Differential diagnoses includes dehydration, kidney infection, complication, anemia, electrolyte or metabolic abnormality. This patient comes in as described above. She was placed in room C 12. She was seen here earlier today and diagnosed with a possible pyelonephritis. She comes back after vomited and had increasing pain. On my exam ,she appears uncomfortable. She is about 3 weeks and is breast-feeding. She's had no vaginal bleeding or discharge. She had a CAT scan done earlier today which was unremarkable. She had an ultrasound which showed some gallstones. IV access established and she was hydrated with IV normal saline. She given morphine 4 mg IV and Zofran 4 mg IV and seemed to be feeling much better. She did receive additional morphine 4 mg IV and was resting very comfortably. She has no fever. Her lipase came back significantly elevated that was up from 100 this morning to now 20,000 range. She appears to have a pancreatitis and is likely a gallstone pancreatitis. She does imaging of her gallbladder earlier today. I did discuss the case with Dr. Robles from the admitting team rather repeat the ultrasound of getting an MRCP. The patient has received IV Zosyn 4.5 g. She seems much more comfortable. The admitting team saw her in the ER and she will be admitted for further treatment and evaluation. Consults Time Called: [phone] Consulting Physician: Dr. Adams Returned Call: [phone] Adams. We discussed the patients results and treatment plan. The patient will be evaluated by the [facility] for further management. Impression Primary Impression: Gall stone pancreatitis Additional Impression: RUQ abdominal pain Scribe Attestation The scribe's documentation has been prepared under my direction and personally reviewed by me in its entirety. I confirm that the note above accurately reflects all work, treatment, procedures, and medical decision making performed by me. Departure Information Dispostion Being Evaluated By Hospitalist Referrals No Doctor, Assigned (PCP) Patient Instructions My [facility] Problem Qualifiers
[2016-11-08 22:41] LABS: BUN/CREATININE RATIO 10.1 (10-20); CALCIUM 8.9 mg/dl (8.5-10.1); CREATININE 0.86 mg/dl (0.60-1.20); POTASSIUM 3.5 mmol/L (3.5-5.1)
[2016-11-08] MEDS ORDERED: PIPERACILLIN/TAZOBACTAM 4.5 GM/100ML D5W IV STA (22:42)
[2016-11-09] MEDS ORDERED: ALUMINUM/MAGNESIUM/SIMETH (MAALOX MAX) 30 ML UDC PO PRN (00:30)
[2016-11-09] MEDS ORDERED: MAGNESIUM HYDROXIDE SUSP 30 ML UDC PO PRN (00:30)
[2016-11-09] MEDS ORDERED: POLYETHYLENE (MIRALAX) 17 GM PACK PO PRN (00:30)
[2016-11-09] MEDS ORDERED: ACETAMINOPHEN 325 MG TAB PO PRN (00:30)
[2016-11-09] MEDS ORDERED: ONDANSETRON INJ 2 MG/ML 2 ML VIAL IV PRN (00:30)
--- NOTE | 2016-11-09 00:47 | History and Physical ---
History & Physical Date & Time of Service: Nov 09, 2016 at 00:33 Chief Complaint: Abdominal Pain, Kidney Infection, Gallbladder Pain Primary Care Physician: No Doctor, Assigned History of Present Illness Patient presents to the ED with severe abdominal pain x 1 day. She notes the abdominal pain started 1 day ago, She had an aching mid-back pain that was 10/10 the pain was waxing and waning without any exaccerbating factors. She does note that when she leans forward it does help. She denies any recent alcohol use or invasive GI procedures such as ERCP or MRCP. Over the past 24 hours the pain started migrating from posterior to across the right side of her anterior abdomen. The quality and nature of the pain is unchanged. She notes having severe nausea and vomiting and has been unable to keep any food down for the past 1 day. She denies any diarrhea, pale stools or dark urine. She denies any fevers, chills or sweats. Her boyfriend does think she seems to look cold today. She denies chest pain, shortness of breath, palpitations, wheezing, or chest tightness. She has not had syncope or lower extremity edema. Of note, she was evaluated in the ED earlier this morning and diagnosed with a UTI and discharged on Bactrim. She did have an RUQ ultrasound that did show gallstones with a distended CBD. After discharge, her pain did not improve so she re-presented to the ED for evaluation. Past Medical/Surgical History Medical Problems: (1) First trimester Status: Resolved (2) Vomiting during Status: Resolved Family History Patient reports no known family medical history. CAD Cancer leukemia Type 2 Diabetes Mellitus Social History Smoking Status: Never Smoker Smokeless Tobacco Use: No Alcohol Use: none Drug Use: none Marital Status: in relationship Housing status: lives with family Occupational Status: unemployed Allergies Coded Allergies: No Known Allergies (Unverified , 11/08/16) Home Medications Scheduled Sulfamethoxazole-Trimethoprim (Bactrim Ds 800MG/160MG), 1 TAB PO BID Scheduled PRN Hydrocodone/Acetaminophen 5MG/325MG ([place] 5MG/325MG), 1-2 TABLET PO Q6 PRN for Pain Review of Systems A 10 point review of systems was negative unless stated above. Physical Exam Vital Signs Date Time Temp Pulse Resp B/P Pulse Ox O2 Delivery O2 Flow Rate FiO2 11/08/16 23:58 85 20 140/68 95 Room Air 11/08/16 21:00 36.7 67 20 114/71 98 Room Air General Appearance: WD/WN, no apparent distress, + obese Head: normocephalic, atraumatic Eyes: normal inspection, EOMI ENT: TMs normal, pharynx normal Neck: supple, no adenopathy, no JVD Respiratory/Chest: lungs clear, no respiratory distress Cardiovascular: regular rate, rhythm, no gallop, no murmur Abdomen/GI: normal bowel sounds, soft, no organomegaly, no pulsatile mass, + tenderness (right back and anterior abdomen; too tender to perform [place]), + pertinent finding (negative for Mark Anthony's or Clayton Turners signs; does have prominent straie from ) Back: normal inspection, no CVA tenderness, no muscle spasm Extremities/Musculoskelatal: no calf tenderness, no pedal edema Neurologic/Psych: alert, normal mood/affect, oriented x 3 Skin: normal color, warm/dry, no rash Lymphatic: no adenopathy Diagnostics Laboratory Results Results Past 24 Hours Test 11/08/16 22:00 Range/Units White Blood Count 12.81 4.8-10.8 K/uL Red Blood Count 4.97 4.2-5.4 M/uL Hemoglobin 13.6 12.0-16.0 g/dL Hematocrit 40.7 37-47 % Mean Corpuscular Volume 81.9 80-100 fL Mean Corpuscular Hemoglobin 27.4 25-34 pg Mean Corpuscular Hemoglobin Concent 33.4 32-36 g/dl Platelet Count 325 130-400 K/uL Mean Platelet Volume 11.2 7.4-10.4 fL Neutrophils (%) (Auto) 89.8 % Lymphocytes (%) (Auto) 6.9 % Monocytes (%) (Auto) 2.8 % Eosinophils (%) (Auto) 0.2 % Basophils (%) (Auto) 0.0 % Neutrophils # (Auto) 11.50 1.4-6.5 K/uL Lymphocytes # (Auto) 0.89 1.2-3.4 K/uL Monocytes # (Auto) 0.36 0.11-0.59 K/uL Eosinophils # (Auto) 0.02 0-0.5 K/uL Basophils # (Auto) 0.00 0-0.2 K/uL RDW Standard Deviation 42.4 36.4-46.3 fL RDW Coefficient of Variation 14.1 11.5-14.5 % Immature Granulocyte % (Auto) 0.3 % Immature Granulocyte # (Auto) 0.04 0.00-0.02 K/uL Sodium Level 138 136-145 mmol/L Potassium Level 3.5 3.5-5.1 mmol/L Chloride Level 105 98-107 mmol/L Carbon Dioxide Level 24 21-32 mmol/L Anion Gap 9.0 3-11 mmol/L Blood Urea Nitrogen 9 7-18 mg/dl Creatinine 0.86 0.60-1.20 mg/dl Est Creatinine Clear Calc Drug Dose 119.6 ml/min Estimated GFR () 111.1 Estimated GFR (Non- 95.9 BUN/Creatinine Ratio 10.1 10-20 Random Glucose 124 70-99 mg/dl Calcium Level 8.9 8.5-10.1 mg/dl Total Bilirubin 1.5 0.2-1 mg/dl Direct Bilirubin 0.5 0-0.2 mg/dl Aspartate Amino Transf (AST/SGOT) 59 15-37 U/L Alanine Aminotransferase (ALT/SGPT) 55 12-78 U/L Alkaline Phosphatase 147 45-117 U/L Total Protein 8.0 6.4-8.2 gm/dl Albumin 3.5 3.4-5.0 gm/dl Lipase 39727 73-393 U/L Microbiology Results 11/08/16 Blood Culture, Received Pending 11/08/16 Blood Culture, Received Pending Diagnostic Radiology Right upper quadrant ultrasound GALLBLADDER-ABD LIMITED CLINICAL HISTORY: RUQ/Flank pain pain. Nausea. TECHNIQUE: Ultrasound COMPARISON STUDY: None FINDINGS: Multiple small punctate gallstones. Normal caliber gallbladder wall. No pericholecystic fluid. Mild prominence of the extra hepatic common bile duct 9 mm. Intrahepatic ducts are unremarkable. Liver is homogeneous. Pancreas and right kidney are unremarkable. IMPRESSION: 1. Multiple small gallstones. 2. Moderate prominence of the extra hepatic common bile duct to 9 mm. 3. Study is otherwise negative Electronically signed by: Francisco Javier Ayala M.D. 11/08/2016 12:13 PM Dictated Date/Time: 11/08/2016 12:[address] SCAN OF THE ABDOMEN AND PELVIS WITHOUT CONTRAST CLINICAL HISTORY: Right flank pain COMPARISON STUDY: No previous studies for comparison. TECHNIQUE: CT scan of the abdomen and pelvis was performed from the lung bases to the proximal femurs. Images are reviewed in the axial, sagittal, and coronal planes. IV contrast was not administered for this examination. CT DOSE: 1255.13 mGy.cm FINDINGS: Lower chest: The heart is normal in size and configuration, without pericardial effusion. The lung bases and pleural spaces are clear. Liver: The unenhanced liver is normal in size, contour, and attenuation. There is no intrahepatic biliary ductal dilatation. Gallbladder: Mildly distended. No calculi are visualized. Spleen: Normal in size and attenuation. Pancreas: Unremarkable. Adrenal glands: Unremarkable. Kidneys: No renal, ureteral, or bladder calculi are visualized. Bowel: There are no transition zones indicate bowel obstruction. The appendix appears normal. There is no acute diverticulitis. Bowel evaluation is limited given the lack of intravenous and oral contrast. Peritoneum: There is no intraperitoneal free air or abdominal ascites. Vasculature: The abdominal aorta is normal in course and caliber. Adenopathy: None. Pelvic viscera: The bladder, and pelvic viscera are unremarkable. Skeletal structures: No destructive osseous lesions are seen. IMPRESSION: 1. No renal, ureteral, or bladder calculi identified 2. No evidence of bowel obstruction. No evidence of free air 3. Normal appendix. No evidence of acute diverticulitis. 4. Mild gallbladder distention Electronically signed by: Franck Christian M.D. 11/08/2016 11:56 AM Dictated Date/Time: 11/08/2016 11:50 AM Impression Assessment and Plan 21 year old female with acute pancreatitis. Most likely, given US findings from this morning, she has gallstone pancreatitis. Our plan for her is as follows: Acute Pancreatitis - Lipase > 08197; no evidence on CT however - Gallstones noted on US - Other etiologies? No evidence of hypercalcemia Denies alcohol Fasting lipid panel ordered - Keep NPO - IVF NSS + 20 KCl @ 125 ml/hr - NPO - Pain control: Morphine 4 mg q 2 hr PRN for pain - Consult GI; looking for recommendations on whether patient may need cholecystectomy, MRCP or ERCP Need for repeat CT to determine progression of pancreatic inflammation, given negative CT UTI - Abnormal UA on presentation this morning - Stop Bactrim as patient not tolerating PO at this time - Zosyn given in the ED - Start IV Rocephin - Urine cultures from ED visit this morning are pending - Blood culture pending DVT prophylaxis - Lovenox 40 mg s.c daily Code Status - Level I Code - Patient designates her boyfriend to make substitute decisions Disposition - Med/Surg - No home needs identified; I do not think patient needs OT or PT evaluations at this time Level of Care Med/Surg Resuscitation Status FULL RESUSCITATION VTE Prophylaxis VTE Risk Assessment Done? Y/N: Yes Risk Level: Moderate Given or contraindicated: Enoxaparin (Lovenox)SQ Assessment and Plan Attending Addendum: I have physically seen and examined this patient, have directed their medical care, have supervised the medical residents activities, and agree with the H&P as noted above, with the following changes: NONE The patient is awake, well-developed and adequately nourished, alert and oriented 3, normocephalic and atraumatic, lying in bed and in no acute distress. HEENT--PERRL, EOMI, mucous membranes and oropharynx moist. Neck--supple, no JVD or bruits, thyroid normal, trachea midline, no adenopathy. Heart--normal S1 and S2, no extra beats, no murmurs, rubs or gallops. Lungs--clear bilaterally with good air movement, no respiratory distress, no accessory muscle use. Abdomen--normal bowel sounds and soft, tender right upper quadrant and flank. Extremities--no cyanosis, clubbing or edema. There are good distal pulses b/l. Dermatologic--normal skin turgor, normal color, warm and dry, no abnormal lymph nodes, no rash. Neurologic--cranial nerves II through XII grossly intact, motor and sensory examination normal. Rheumatologic--normal range of motion, nontender, muscles and joints. Psychiatric--normal affect. Assessment and Plan: Acute Gallstone Pancreatitis--lipase earlier this morning is 125, later today as 21,781. We'll add amylase to emergency department laboratories, and follow amylase and lipase serially. Imaging studies earlier in the day suggest gallstones, and we will order an MRCP to further assess for blockage. The patient is presently post and breast-feeding. Place on normal saline with potassium chloride 20 mEq at 125 ML's per hour, the patient will be kept nothing by mouth, it would minimize pain medications no medications that might cross into breastmilk as much as possible. She did receive Zosyn in the emergency department, and this will be continued at Q8 hours intervals. I did warn the patient that the baby may develop diarrhea when she is breast-feeding. GI will be consulted as the patient may require an ERCP, and surgery will be consulted as well.
[2016-11-09] MEDS: MoRPHine SULFATE 4 MG/ML 1 ML CARP\\VIAL IV PRN ×5 (01:08→22:56)
[2016-11-09 02:21] VITALS: BP 145/97; PULSE 67; TEMP 36.6; O2SAT 96; Ht 160 cm; Wt 106.0 kg
[2016-11-09 02:58] VITALS: O2SAT 95
[2016-11-09] MEDS: NSS + 20MEQ KCL 1000ML 1,000 ML IV SCH ×3 (02:59→18:57)
[2016-11-09] MEDS ORDERED: CEFTRIAXONE SOD INJ 1 GM in DEXTROSE 5% ADD-VANTAGE 50ML 50 ML IV SCH (04:00)
[2016-11-09] MEDS ORDERED: PIPERACILL/TAZOBAC CONSULT ACTIVE PRN (05:15)
[2016-11-09] MEDS ORDERED: PIPERACILL/TAZOBAC IV 3.375 GM in DEXTROSE 5% 100ML 100 ML IV SCH (06:00)
[2016-11-09] MEDS: PIPERACILL/TAZOBAC IV 4.5 GM in DEXTROSE 5% 100ML IV SCH ×3 (06:24→21:07)
[2016-11-09 07:10] VITALS: BP 138/88; PULSE 75; TEMP 36.5; O2SAT 96
[2016-11-09 07:18] LABS: COMPLETE YES; EOS % 0.3 %; HEMATOCRIT 36.8 % (37-47); IG% 0.2 %; LYMPH % 17.9 %; LYMPH ABS # 1.96 K/uL (1.2-3.4); MEAN CELL VOLUME 82.3 fL (80-100); MEAN CORPUSCULAR HEMOGLOBIN 27.1 pg (25-34); MEAN CORPUSCULAR HGB CONC 32.9 g/dl (32-36); MEAN PLATELET VOLUME 11.2 fL (7.4-10.4); NEUT % 73.6 %; PLATELET COUNT 305 K/uL (130-400); RED BLOOD COUNT 4.47 M/uL (4.2-5.4); WHITE BLOOD COUNT 10.96 K/uL (4.8-10.8)
[2016-11-09 07:53] LABS: ALB/GLOB RATIO 0.7 (0.9-2); BUN/CREATININE RATIO 9.1 (10-20); CHOLESTEROL/HDL RATIO 3.4; CREATININE 0.82 mg/dl (0.60-1.20); POTASSIUM 3.4 mmol/L (3.5-5.1)
[2016-11-09] MEDS: ENOXAPARIN 40 MG/0.4 ML SYR SQ SCH (11:03)
--- NOTE | 2016-11-09 11:25 | DIAGNOSTIC IMAGING REPORT ---
MRCP CLINICAL HISTORY: Acute pancreatitis. Dilated common bile duct. COMPARISON STUDY: CT of the abdomen and pelvis and right upper quadrant ultrasound November 08, 2016. FINDINGS: There are numerous gallstones within the gallbladder. Mild gallbladder wall thickening is noted with moderate pericholecystic fluid. Moderate peripancreatic fluid has increased since exam of November 08, 2016. There is no pancreatic ductal dilatation. Note is made of moderate dilatation of the common bile duct that measures 1.1 cm in caliber. No common bile duct calculi are identified on this examination. There is mild dilatation of the intrahepatic bile ducts. No well-defined peripancreatic fluid collection is present. Unenhanced images of the liver, spleen, adrenal glands and right kidney are normal. There is a suspected 1.1 cm cyst within the upper pole of the left kidney. IMPRESSION: 1. Moderate biliary ductal dilatation. No common bile duct calculi identified. No pancreatic ductal dilatation. 2. Interval development of moderate peripancreatic infiltration consistent with acute pancreatitis. 3. Cholelithiasis, mild gallbladder wall thickening and pericholecystic fluid. The fluid could be related to acute pancreatitis although acute cholecystitis could have this imaging appearance. Electronically signed by: Shiva Dodd M.D. 11/09/2016 11:24 AM Dictated Date/Time: 11/09/2016 11:10 AM
--- NOTE | 2016-11-09 11:29 | Hospitalist Progress Note ---
Hospitalist Progress Note Date of Service Nov 09, 2016. Subjective Pt evaluation today including: conversation w/ patient, physical exam, chart review, lab review, review of studies, review of inpatient medication list Pain: RUQ well controlled at presetn PO Intake: NPO, will trial clears today Voiding: no voiding problems The patient was seen and examined this morning. Pt reports her pain is controlled, she is feeling hungry and is requesting to drink something. She does report pain is worsened with deep breaths. She got pain medication about an hour ago and is slightly sleepy from it. She denies lightheadedness, dizziness, difficulty breathing, cp, fever, chills, sweats. All Other Systems: Reviewed and Negative (other than listed per HPI) Objective Vital Signs Date Time Temp Pulse Resp B/P Pulse Ox O2 Delivery O2 Flow Rate FiO2 11/09/16 07:55 Room Air 11/09/16 07:10 36.5 75 16 138/88 96 Room Air 11/09/16 02:58 95 11/09/16 02:21 36.6 67 18 145/97 96 Room Air 11/09/16 01:59 53 20 154/106 98 Room Air 11/08/16 23:58 85 20 140/68 95 Room Air 11/08/16 21:00 36.7 67 20 114/71 98 Room Air Physical Exam General Appearance: WD/WN, no apparent distress, + obese Eyes: PERRL, EOMI ENT: hearing grossly normal, pharynx normal Neck: no adenopathy, no JVD Respiratory/Chest: lungs clear, no respiratory distress, no accessory muscle use Cardiovascular: regular rate, rhythm, no murmur Abdomen: normal bowel sounds, soft, + tenderness (in RUQ and epigastric region) Extremities: non-tender, no pedal edema, no calf tenderness Neurologic/Psychiatric: normal mood/affect, oriented x 3, + pertinent finding ( slightly sleepy throughout exam, requires being woken up once. ) Skin: normal color, warm/dry Laboratory Results Last 24 Hours Test 11/08/16 22:00 11/09/16 06:36 White Blood Count 12.81 K/uL 10.96 K/uL Red Blood Count 4.97 M/uL 4.47 M/uL Hemoglobin 13.6 g/dL 12.1 g/dL Hematocrit 40.7 % 36.8 % Mean Corpuscular Volume 81.9 fL 82.3 fL Mean Corpuscular Hemoglobin 27.4 pg 27.1 pg Mean Corpuscular Hemoglobin Concent 33.4 g/dl 32.9 g/dl Platelet Count 325 K/uL 305 K/uL Mean Platelet Volume 11.2 fL 11.2 fL Neutrophils (%) (Auto) 89.8 % 73.6 % Lymphocytes (%) (Auto) 6.9 % 17.9 % Monocytes (%) (Auto) 2.8 % 8.0 % Eosinophils (%) (Auto) 0.2 % 0.3 % Basophils (%) (Auto) 0.0 % 0.0 % Neutrophils # (Auto) 11.50 K/uL 8.07 K/uL Lymphocytes # (Auto) 0.89 K/uL 1.96 K/uL Monocytes # (Auto) 0.36 K/uL 0.88 K/uL Eosinophils # (Auto) 0.02 K/uL 0.03 K/uL Basophils # (Auto) 0.00 K/uL 0.00 K/uL RDW Standard Deviation 42.4 fL 42.8 fL RDW Coefficient of Variation 14.1 % 14.2 % Immature Granulocyte % (Auto) 0.3 % 0.2 % Immature Granulocyte # (Auto) 0.04 K/uL 0.02 K/uL Sodium Level 138 mmol/L 139 mmol/L Potassium Level 3.5 mmol/L 3.4 mmol/L Chloride Level 105 mmol/L 106 mmol/L Carbon Dioxide Level 24 mmol/L 24 mmol/L Anion Gap 9.0 mmol/L 9.0 mmol/L Blood Urea Nitrogen 9 mg/dl 8 mg/dl Creatinine 0.86 mg/dl 0.82 mg/dl Est Creatinine Clear Calc Drug Dose 119.6 ml/min 125.4 ml/min Estimated GFR () 111.1 117.7 Estimated GFR (Non- 95.9 101.6 BUN/Creatinine Ratio 10.1 9.1 Random Glucose 124 mg/dl 90 mg/dl Calcium Level 8.9 mg/dl 8.0 mg/dl Total Bilirubin 1.5 mg/dl 1.8 mg/dl Direct Bilirubin 0.5 mg/dl Aspartate Amino Transf (AST/SGOT) 59 U/L 41 U/L Alanine Aminotransferase (ALT/SGPT) 55 U/L 42 U/L Alkaline Phosphatase 147 U/L 122 U/L Total Protein 8.0 gm/dl 6.8 gm/dl Albumin 3.5 gm/dl 2.9 gm/dl Lipase 56218 U/L 39544 U/L Prothrombin Time 11.0 SECONDS Prothromb Time International Ratio 1.0 Globulin 3.9 gm/dl Albumin/Globulin Ratio 0.7 Triglycerides Level 101 mg/dl Cholesterol Level 156 mg/dl HDL Cholesterol 46 mg/dl LDL Cholesterol, Calculated 90 mg/dl VLDL Cholesterol, Calculated 20 mg/dl Cholesterol/HDL Ratio 3.4 Amylase Level 2782 U/L Assessment and Plan 21 year old female with acute pancreatitis. Most likely, given US findings from this morning, she has gallstone pancreatitis. Acute Pancreatitis - [place]ase > 62914; [place] [address], - CT however was negative for pancreatitis - Gallstones noted on US - Unknown etiology without evidence of hypercalcemia, denies alcohol. - Fasting lipid panel negative for hypercholesterolemia - Keep NPO - IVF NSS + 20 KCl @ 125 ml/hr - Pain control: Morphine 4 mg q 2 hr PRN for pain - GI on board- appreciate recs - will keep pt NPO in case needs cholecystectomy today,and for pancreatitis MRCP completed this morning 1. Moderate biliary ductal dilatation. No common bile duct calculi identified. No pancreatic ductal dilatation. 2. Interval development of moderate peripancreatic infiltration consistent with acute pancreatitis. 3. Cholelithiasis, mild gallbladder wall thickening and pericholecystic fluid. The fluid could be related to acute pancreatitis although acute cholecystitis could have this imaging appearance. UTI - Abnormal UA on presentation this morning - Stop Bactrim as patient not tolerating PO at this time - Continue rochephin (day 1) - Urine cultures from ED visit this morning are pending - Follow BCx S/p vaginal 1 month ago - Currently breast feeding with supplies at bedside, pump available. - No complaints DVT prophylaxis - Lovenox 40 mg s.c daily Code Status: FULL CODE - Patient designates her boyfriend to make substitute decisions Disposition: from home
[2016-11-09 15:00] VITALS: BP 124/78; PULSE 81; TEMP 36.9; O2SAT 95
[2016-11-09 16:30] VITALS: O2SAT 95
--- NOTE | 2016-11-09 22:52 | GASTROINTESTINAL CONSULTATION ---
DATE OF CONSULTATION: 11/09/2016 CHIEF COMPLAINT: Acute pancreatitis. HISTORY OF PRESENT ILLNESS: Mrs. Benjamin is a 21-year-old white female who is from late September 2016. The patient developed approximately 1-day history of increasing epigastric and right-sided abdominal pain. Some of the right-sided pain went to the back. The pain was described as 10/10. The pain was 10/10 in intensity. At the present time, it is down to 6-7/10. The patient does not use alcoholic beverages. Has not been using ibuprofen recently and has no prior history of pancreatitis. The patient also had nausea and vomiting during this event. The patient denies hematemesis, coffee-ground emesis but did have nausea and vomiting. In the Emergency Room, the patient had originally been seen for symptoms and felt to be a UTI and placed on Bactrim. The patient however returned to the Emergency Room. At that time, the right upper quadrant did show evidence of gallstones with a prominent common bile duct. The patient has no other significant past medical or surgical history. This was a vaginal delivery in September. The patient is breast feeding. FAMILY HISTORY: Significant for mother with gallstones, type 2 diabetes and reports an attack of pancreatitis, she says due to high sugars. There is also a history of coronary artery disease, leukemia and cancer. SOCIAL HISTORY: The patient denies tobacco abuse, denies alcohol use. Currently in a relationship and lives with her family. ALLERGIES: She has no known drug allergies. HOME MEDICATIONS: Started yesterday evening was Bactrim for UTI. REVIEW OF SYSTEMS: Otherwise noncontributory based on 14-point exam. There is no familial history of pancreatitis, prior attacks of this other than those experienced during which were not as severe. She does not recall any testing by way of ultrasound or blood work during the . PHYSICAL EXAMINATION: VITAL SIGNS: On admission, the patient was afebrile at 36.7, heart rate 67, blood pressure 114/71, respirations 20, pulse ox 98. GENERAL: The patient is awake, alert and oriented, resting in bed in mild distress with movement. HEENT: Sclerae are anicteric, conjunctivae are moist. Oral mucosa is moist. NECK: There is no cervical or supraclavicular adenopathy. I do not appreciate thyromegaly. HEART: Normal S1, S2. LUNGS: Clear to auscultation without rales, rhonchi or wheezes. ABDOMEN: Soft, tender in the epigastrium and right upper quadrant area without rebound or guarding. I do not appreciate hepatosplenomegaly. EXTREMITIES: Without clubbing, cyanosis or edema. RECTAL: Deferred. LABORATORY STUDIES: On admission showed a white count of 12.8 with a hemoglobin of 13.6 and platelets of 325,000. MCV is 82. BUN and creatinine are 9 and 0.8 with a normal potassium of 3.5. Her liver tests on admission showed a bilirubin of 1.5 with a direct of 0.5, AST 59, ALT 55, alkaline phosphatase slightly elevated at 147. Total protein 8, lipase level is 21,781. X-ray for ultrasound revealed multiple gallstones, moderate problems with the extrahepatic common bile duct to 9 mm. Study was otherwise normal. CT scan was performed without contrast. This revealed an unenhanced liver of normal size. There is no intrahepatic bile duct dilation reported. No calculi seen on CT but the gallbladder is distended. Pancreas is unremarkable (noncontrast study). There is no evidence of renal calculi or bladder calculi, no evidence of bowel obstruction, normal appearing appendix and mild gallbladder distention. Blood work today this morning shows a potassium of 3.4, BUN is 8 and creatinine 0.82. The AST has fallen to 41, ALT down to 42, alkaline phosphatase is down to 122. Lipase has decreased to 16,696 and amylase is 2782. The patient's triglyceride level is 101. Cholesterol is 156. IMPRESSION: This is a 21-year-old white female who is 1 month status post vaginal delivery, who had some upper gastrointestinal symptoms during the , who presents with epigastric and right upper quadrant pain with pancreatic enzymes suggesting acute pancreatitis. The LFT pattern is minimally elevated and it is unclear if this reflects gallstone pancreatitis, although this is the most likely diagnosis, given the patient's liver tests. An MRCP performed at 1:00 this morning revealed a moderately dilated biliary system without common bile duct calculi identified. The pancreatic duct is normal. The MRI shows an interval development of moderate peripancreatic infiltration consistent with acute pancreatitis. There is also a cyst in the left upper pole of the kidney. There is no peripancreatic fluid collection at this time. PLAN: The patient should continue with pain control, strict n.p.o. status and IV fluids with lactated Ringer's and at least 250 mL an hour to maintain good hydration. At the present time with declining liver function tests and the absence of calculi in the biliary system on MRCP, an ERCP is not currently warranted; however, depending on her pattern of LFTs and symptoms, this can be considered in the future. At some point, the patient will require cholecystectomy once the acute pancreatitis has resolved, given the stones. Certainly if LFTs were to rise, then ERCP may be necessary. We will continue to follow with you. If you have any questions, please do not hesitate to contact the service. Thank you for allowing us to participate in this patient's care.
[2016-11-09 23:03] VITALS: BP 120/74; PULSE 74; TEMP 37.1; O2SAT 95
[2016-11-10] MEDS: NSS + 20MEQ KCL 1000ML 1,000 ML IV SCH ×2 (00:30→06:17)
[2016-11-10] MEDS: PIPERACILL/TAZOBAC IV 4.5 GM in DEXTROSE 5% 100ML IV SCH ×3 (06:16→21:57)
[2016-11-10] MEDS: MoRPHine SULFATE 4 MG/ML 1 ML CARP\\VIAL IV PRN ×2 (06:46→21:57)
[2016-11-10 07:12] LABS: BASO % 0.1 %; BASO ABS # 0.01 K/uL (0-0.2); COMPLETE YES; EOS % 1.7 %; HEMATOCRIT 35.1 % (37-47); IG% 0.2 %; LYMPH % 21.4 %; LYMPH ABS # 2.21 K/uL (1.2-3.4); MEAN CELL VOLUME 84.6 fL (80-100); MEAN CORPUSCULAR HGB CONC 31.9 g/dl (32-36); MEAN PLATELET VOLUME 11.6 fL (7.4-10.4); MONO % 7.8 %; NEUT % 68.8 %; PLATELET COUNT 264 K/uL (130-400); RED BLOOD COUNT 4.15 M/uL (4.2-5.4); WHITE BLOOD COUNT 10.32 K/uL (4.8-10.8)
[2016-11-10] MEDS: ENOXAPARIN 40 MG/0.4 ML SYR SQ SCH (07:32)
[2016-11-10 07:43] LABS: CALCIUM 8.2 mg/dl (8.5-10.1); CREATININE 0.6 mg/dl (0.60-1.20); POTASSIUM 3.4 mmol/L (3.5-5.1)
[2016-11-10 07:46] VITALS: BP 104/68; PULSE 91; TEMP 36.6; O2SAT 95
[2016-11-10 07:52] LABS: ALB/GLOB RATIO 0.7 (0.9-2)
[2016-11-10] MEDS: LACTATED RINGER'S 1000ML 1,000 ML IV SCH ×3 (10:43→20:41)
[2016-11-10 15:41] VITALS: BP 121/78; PULSE 80; TEMP 37.4; O2SAT 97
--- NOTE | 2016-11-10 16:34 | PROGRESS NOTE ---
DATE: 11/10/2016 REASON FOR EVALUATION: Pancreatitis. HISTORY OF PRESENT ILLNESS: The patient still has upper abdominal pain but slightly better. Objectively her vital signs are normal. She is afebrile. LABORATORY DATA: Her white count has returned to normal. Alkaline phosphatase is 128, ALT and AST are normal. Bilirubin is 1.7, down from 1.8, lipase is 3000 down from 16,000, amylase is 1000 down from 2700. Her MRCP did not reveal any evidence of a common bile duct stone. She does have stones in her gallbladder. PHYSICAL EXAMINATION: ABDOMEN: Shows some abdominal stretch coker. There is some tenderness in the epigastric area and right upper quadrant. No masses are appreciated. IMPRESSION: The patient is about 1 month and with what looks like pancreatitis, probably from gallstones. It appears that she may have passed the gallstone and ERCP is not indicated currently. If the situation worsens, then we may need to intervene, otherwise she will need to have her gallbladder out electively at some point with an operative cholangiogram.
--- NOTE | 2016-11-10 18:01 | Hospitalist Progress Note ---
Hospitalist Progress Note Date of Service Nov 10, 2016. Subjective Pt evaluation today including: conversation w/ patient, physical exam, chart review, lab review, review of studies, review of inpatient medication list Patient is having less abdominal pain. No vomiting. + mild nausea. No fever or chills. No cough or SOB. Additional Comments: A 10 system review was performed and all were negative. Positives were placed in the subjective section. Objective Vital Signs Date Time Temp Pulse Resp B/P Pulse Ox O2 Delivery O2 Flow Rate FiO2 11/10/16 15:41 37.4 80 16 121/78 97 Room Air 11/10/16 15:33 Room Air 11/10/16 07:46 36.6 91 16 104/68 95 Room Air 11/10/16 07:37 Room Air 11/09/16 23:10 Room Air 11/09/16 23:03 37.1 74 16 120/74 95 Room Air Physical Exam Notes: GEN: Awake, alert, and oriented x 3. Not in acute distress HEENT: Tm's intact, no inflammation, EOMI, PERRLA, MMM Neck: Soft, supple Lungs: CTA b/l, no r/r/w Heart: REG, nrl S1S2 without murmurs, rubs or gallops Abdomen: Soft, ND, + BS. + moderate right upper quadrant tenderness that extends to epigastric region. EXT: No C/C/E NEURO: CN's II-XII grossly intact, non-focal Skin: warm, dry, no rashes PSYCH: pleasant, cooperative. Laboratory Results Last 24 Hours Test 11/10/16 06:22 11/10/16 07:57 White Blood Count 10.32 K/uL Red Blood Count 4.15 M/uL Hemoglobin 11.2 g/dL Hematocrit 35.1 % Mean Corpuscular Volume 84.6 fL Mean Corpuscular Hemoglobin 27.0 pg Mean Corpuscular Hemoglobin Concent 31.9 g/dl Platelet Count 264 K/uL Mean Platelet Volume 11.6 fL Neutrophils (%) (Auto) 68.8 % Lymphocytes (%) (Auto) 21.4 % Monocytes (%) (Auto) 7.8 % Eosinophils (%) (Auto) 1.7 % Basophils (%) (Auto) 0.1 % Neutrophils # (Auto) 7.10 K/uL Lymphocytes # (Auto) 2.21 K/uL Monocytes # (Auto) 0.80 K/uL Eosinophils # (Auto) 0.18 K/uL Basophils # (Auto) 0.01 K/uL RDW Standard Deviation 46.3 fL RDW Coefficient of Variation 14.8 % Immature Granulocyte % (Auto) 0.2 % Immature Granulocyte # (Auto) 0.02 K/uL Sodium Level 139 mmol/L Potassium Level 3.4 mmol/L Chloride Level 107 mmol/L Carbon Dioxide Level 22 mmol/L Anion Gap 10.0 mmol/L Blood Urea Nitrogen 7 mg/dl Creatinine 0.60 mg/dl Est Creatinine Clear Calc Drug Dose 171.4 ml/min Estimated GFR () 150.0 Estimated GFR (Non- 129.4 BUN/Creatinine Ratio 11.0 Random Glucose 67 mg/dl Calcium Level 8.2 mg/dl Total Bilirubin 1.7 mg/dl Aspartate Amino Transf (AST/SGOT) 21 U/L Alanine Aminotransferase (ALT/SGPT) 29 U/L Alkaline Phosphatase 128 U/L Total Protein 6.4 gm/dl Albumin 2.6 gm/dl Globulin 3.8 gm/dl Albumin/Globulin Ratio 0.7 Lipase 3061 U/L Amylase Level 1006 U/L Assessment and Plan 1) Pancreatitis - improving clinically and Lipase is down to 3,000 today. - continue IVF (actually I will change to LR and increase the rate). Continue NPO status. check labs in am. Pain and nausea control. 2) UTI as outpatient - IV Zosyn ordered. 3) DVT prophylaxis - TEDs, SCDs, Sub-q lovenox. Continued [facility] stay due to: inadequate po fluid intake, inadequate oral pain control Discharge planning: home
[2016-11-10 23:30] VITALS: BP 129/74; PULSE 85; TEMP 36.9; O2SAT 95
[2016-11-11] MEDS: LACTATED RINGER'S 1000ML 1,000 ML IV SCH ×3 (00:49→11:58)
[2016-11-11] MEDS: MoRPHine SULFATE 4 MG/ML 1 ML CARP\\VIAL IV PRN ×3 (00:57→23:37)
[2016-11-11] MEDS: PIPERACILL/TAZOBAC IV 4.5 GM in DEXTROSE 5% 100ML IV SCH ×3 (06:22→22:35)
[2016-11-11 07:05] VITALS: BP 112/72; PULSE 84; TEMP 36.9; O2SAT 95
[2016-11-11] MEDS: ENOXAPARIN 40 MG/0.4 ML SYR SQ SCH (07:52)
[2016-11-11 08:14] LABS: COMPLETE YES; EOS % 3.4 %; HEMATOCRIT 32.3 % (37-47); IG% 0.3 %; LYMPH % 13.3 %; LYMPH ABS # 1.24 K/uL (1.2-3.4); MEAN CELL VOLUME 83.7 fL (80-100); MEAN CORPUSCULAR HEMOGLOBIN 26.9 pg (25-34); MEAN CORPUSCULAR HGB CONC 32.2 g/dl (32-36); MEAN PLATELET VOLUME 11.3 fL (7.4-10.4); PLATELET COUNT 232 K/uL (130-400); RED BLOOD COUNT 3.86 M/uL (4.2-5.4); WHITE BLOOD COUNT 9.29 K/uL (4.8-10.8)
[2016-11-11 08:58] LABS: ALT/SGPT 21 U/L (12-78); AMYLASE 246 U/L (25-115); BLOOD UREA NITROGEN 5 mg/dl (7-18); CALCIUM 8.5 mg/dl (8.5-10.1); CARBON DIOXIDE 23 mmol/L (21-32); CHLORIDE 104 mmol/L (98-107); CREATININE 0.47 mg/dl (0.60-1.20); GLUCOSE 63 mg/dl (70-99); POTASSIUM 3.5 mmol/L (3.5-5.1); SODIUM 138 mmol/L (136-145)
[2016-11-11 09:01] LABS: ALB/GLOB RATIO 0.6 (0.9-2); ALKALINE PHOSPHATASE 93 U/L (45-117); AST/SGOT 14 U/L (15-37)
[2016-11-11 15:16] VITALS: BP 118/79; PULSE 71; TEMP 36.6; O2SAT 97
--- NOTE | 2016-11-11 17:06 | Hospitalist Progress Note ---
Hospitalist Progress Note Date of Service Nov 11, 2016. Subjective Pt evaluation today including: conversation w/ patient, physical exam, chart review, lab review, review of studies, review of inpatient medication list Lipase normalized today. Epigastric pain had resolved. She did have intermittent pain in the right upper quadrant through the night and into this am. She did tolerate liquid diet since mid morning. As she has a 1 month old child, she is interested in proceeding with cholecystectomy as soon as possible. She is interested in seeing surgery to expedite treatment. She is concerned for recurrence of pancreatitis. Additional Comments: A 10 system review was performed and all were negative. Positives were placed in the subjective section. Objective Vital Signs Date Time Temp Pulse Resp B/P Pulse Ox O2 Delivery O2 Flow Rate FiO2 11/11/16 15:16 36.6 71 17 118/79 97 Room Air 11/11/16 08:02 Room Air 11/11/16 07:05 36.9 84 18 112/72 95 Room Air 11/11/16 00:45 Room Air 11/10/16 23:30 36.9 85 16 129/74 95 Room Air Physical Exam Notes: GEN: Awake, alert, and oriented x 3. Not in acute distress HEENT: Tm's intact, no inflammation, EOMI, PERRLA, MMM Neck: Soft, supple Lungs: CTA b/l, no r/r/w Heart: REG, nrl S1S2 without murmurs, rubs or gallops Abdomen: Soft, NT, ND, + BS EXT: No C/C/E NEURO: CN's II-XII grossly intact, non-focal Skin: warm, dry, no rashes PSYCH: pleasant, cooperative, no signs of significant anxiety or depression. Laboratory Results Last 24 Hours Test 11/11/16 07:51 11/11/16 09:07 11/11/16 09:38 White Blood Count 9.29 K/uL Red Blood Count 3.86 M/uL Hemoglobin 10.4 g/dL Hematocrit 32.3 % Mean Corpuscular Volume 83.7 fL Mean Corpuscular Hemoglobin 26.9 pg Mean Corpuscular Hemoglobin Concent 32.2 g/dl Platelet Count 232 K/uL Mean Platelet Volume 11.3 fL Neutrophils (%) (Auto) 74.0 % Lymphocytes (%) (Auto) 13.3 % Monocytes (%) (Auto) 9.0 % Eosinophils (%) (Auto) 3.4 % Basophils (%) (Auto) 0.0 % Neutrophils # (Auto) 6.86 K/uL Lymphocytes # (Auto) 1.24 K/uL Monocytes # (Auto) 0.84 K/uL Eosinophils # (Auto) 0.32 K/uL Basophils # (Auto) 0.00 K/uL RDW Standard Deviation 44.3 fL RDW Coefficient of Variation 14.4 % Immature Granulocyte % (Auto) 0.3 % Immature Granulocyte # (Auto) 0.03 K/uL Sodium Level 138 mmol/L Potassium Level 3.5 mmol/L Chloride Level 104 mmol/L Carbon Dioxide Level 23 mmol/L Anion Gap 11.0 mmol/L Blood Urea Nitrogen 5 mg/dl Creatinine 0.47 mg/dl Est Creatinine Clear Calc Drug Dose 218.8 ml/min Estimated GFR () > 150.0 Estimated GFR (Non- 140.2 BUN/Creatinine Ratio 10.0 Random Glucose 63 mg/dl Calcium Level 8.5 mg/dl Total Bilirubin 1.4 mg/dl Aspartate Amino Transf (AST/SGOT) 14 U/L Alanine Aminotransferase (ALT/SGPT) 21 U/L Alkaline Phosphatase 93 U/L Total Protein 6.3 gm/dl Albumin 2.4 gm/dl Globulin 3.9 gm/dl Albumin/Globulin Ratio 0.6 Amylase Level 246 U/L Lipase 314 U/L Bedside Glucose 66 mg/dl 90 mg/dl Assessment and Plan 1) Pancreatitis - resolved clinically. Lipase normalized. - She tolerated full liquid diet and I advanced just now. Re-check labs in am. I D/C'd IVF. 2) Symptomatic Cholelithiasis - Patient interested in seeing surgery. I will consult. I explained to her that usually only emergent surgeries are performed on weekend days. 3) UTI as outpatient - IV Zosyn ordered. 4) DVT prophylaxis - TEDs, SCDs, Sub-q lovenox.
--- NOTE | 2016-11-11 19:07 | Pre-Operative Consultation ---
History General Date of Service: Nov 11, 2016. Stated Complaint: RUQ and epigastric pain HPI HPI: The patient is a 21 year old female being seen for pre-operative evaluation at the request of Dr Biggs. She was admitted on 11/08 with gallstone pancreatitis. On 11/07, developed sharp, stabbing epigastric and RUQ pain radiating to back associated with nausea and vomiting. She had similar episodes during her but these resolved conservatively. Pain worsened, 10/10 so came to ER for evaluation. Found to have dilated CBD with gallstones and lab values c/w acute pancreatitis. Her symptoms have improved but she still has a 4/10 ache in the RUQ. Tolerating regular diet. She is 1 month and nursing (first , vaginal delivery). Wants to have surgery done before discharge to expedite her healing. Historian: patient Anticipated Procedure: laparoscopic cholecystectomy with IOC Risk Assessment Major Risk Factors: no known hx of decompensated CHF, no known hx of recent [place] , no known hx of severe valvular disease, no known hx of unstable or severe angina Pre-Op Conditions: no known hx of COPD, no known hx of arrhythmia, no known hx of asthma, no known hx of cerebrovascular disease, no known hx of compensated CHF, no known hx of diabetes, no known hx of elevated BNP, no known hx of family h/o anesthesia problems, no known hx of h/o anesthesia problems, no known hx of h/o orthostatic intolerance, no known hx of history of [place], no known hx of implanted defibrillator, no known hx of liver disease, no known hx of other, no known hx of pacemaker, no known hx of problems w/ neck or jaw, no known hx of recent PCI, no known hx of renal insufficiency, no known hx of seizure disorder, no known hx of stable angina, no known hx of thyroid disease, no known hx of valvular heart disease Daily beta geraldo use?: No Problem List Medical Problems: (1) Acute pyelonephritis Status: Acute (2) Biliary colic Status: Acute (3) Gall stone pancreatitis Status: Acute (4) RUQ abdominal pain Status: Acute Medical & Surgical History Past Medical History: no pertinent history Past Surgical History: no surgical history Family History Family History: gallbladder disease, heart disease Social History Hx Tobacco Use In Past Year?: No Smoking Status: Never Smoker Drug Use: none Marital status: in relationship Housing status: lives with family Occupation status: unemployed Allergies Allergies: Coded Allergies: No Known Allergies (Unverified , 11/08/16) Medications Current Inpatient Medications Current Inpatient Medications Medications (Trade) Dose Ordered Sig/Sarath Route Start Time Stop Time Status Last Admin Dose Admin Enoxaparin Sodium (Lovenox Inj) 40 mg Q24H SQ 11/09/16 08:00 12/09/16 07:59 11/11/16 07:52 40 MG Acetaminophen (Tylenol Tab) 650 mg Q4H PRN PO 11/09/16 00:30 12/09/16 00:29 11/11/16 11:59 650 MG Al Hydrox/Mg Hydrox/Simethicone (Maalox Max Susp) 15 ml Q4H PRN PO 11/09/16 00:30 12/09/16 00:29 Magnesium Hydroxide (Milk Of Magnesia Susp) 30 ml Q6H PRN PO 11/09/16 00:30 12/09/16 00:29 Polyethylene (Miralax Powder Packet) 17 gm DAILY PRN PO 11/09/16 00:30 12/09/16 00:29 Ondansetron HCl (Zofran Inj) 4 mg Q6H PRN IV 11/09/16 00:30 12/09/16 00:29 Morphine Sulfate 4 mg 4 mg Q2H PRN IV 11/09/16 00:45 11/23/16 00:44 11/11/16 06:28 4 MG Piperacillin Sod/ Tazobactam Sod/ Dextrose (Zosyn Iv/D5 100ml) 120 ml @ 30 mls/hr Q8H IV 11/09/16 06:00 11/19/16 05:59 11/11/16 13:44 30 MLS/HR Piperacillin Sod/ Tazobactam Sod (Consult) 1 ea UD PRN N/A 11/09/16 05:15 12/09/16 05:14 Review of Systems Review of Systems Constitutional: no symptoms reported Eyes: reports: no symptoms ENT: reports: no symptoms reported Cardiovascular: reports: no symptoms reported Respiratory: reports: no symptoms reported Gastrointestinal: see HPI Genitourinary - Female: reports: no symptoms Musculoskeletal: no symptoms reported Integumentary: no symptoms reported Neurologic: reports: no symptoms Physical Exam Physical Exam General Appearance: + WD/WN, No distress Ears, Nose, Throat: + normal ENT inspection Neck: No abnormal inspection, No limited range of motion Respiratory: No abnormal breath sounds, No accessory muscle use, No decreased breath sounds Cardiovascular: No JVD, No abnormal rate, No diastolic murmur, No systolic murmur Abdomen: + tenderness (mild in RUQ), No abnormal bowel sounds, No distension, No hernia, No rebound Extremities: No abnormal range of motion, No edema Neurologic/Psychiatric: 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, No decreased LOC Skin Characteristics: No abnormal color, No cyanosis Diagnostics Labs Labs Results Past 24 Hours Test 11/11/16 07:51 11/11/16 09:07 11/11/16 09:38 Range/Units White Blood Count 9.29 4.8-10.8 K/uL Red Blood Count 3.86 4.2-5.4 M/uL Hemoglobin 10.4 12.0-16.0 g/dL Hematocrit 32.3 37-47 % Mean Corpuscular Volume 83.7 80-100 fL Mean Corpuscular Hemoglobin 26.9 25-34 pg Mean Corpuscular Hemoglobin Concent 32.2 32-36 g/dl Platelet Count 232 130-400 K/uL Mean Platelet Volume 11.3 7.4-10.4 fL Neutrophils (%) (Auto) 74.0 % Lymphocytes (%) (Auto) 13.3 % Monocytes (%) (Auto) 9.0 % Eosinophils (%) (Auto) 3.4 % Basophils (%) (Auto) 0.0 % Neutrophils # (Auto) 6.86 1.4-6.5 K/uL Lymphocytes # (Auto) 1.24 1.2-3.4 K/uL Monocytes # (Auto) 0.84 0.11-0.59 K/uL Eosinophils # (Auto) 0.32 0-0.5 K/uL Basophils # (Auto) 0.00 0-0.2 K/uL RDW Standard Deviation 44.3 36.4-46.3 fL RDW Coefficient of Variation 14.4 11.5-14.5 % Immature Granulocyte % (Auto) 0.3 % Immature Granulocyte # (Auto) 0.03 0.00-0.02 K/uL Sodium Level 138 136-145 mmol/L Potassium Level 3.5 3.5-5.1 mmol/L Chloride Level 104 98-107 mmol/L Carbon Dioxide Level 23 21-32 mmol/L Anion Gap 11.0 3-11 mmol/L Blood Urea Nitrogen 5 7-18 mg/dl Creatinine 0.47 0.60-1.20 mg/dl Est Creatinine Clear Calc Drug Dose 218.8 ml/min Estimated GFR () > 150.0 Estimated GFR (Non- 140.2 BUN/Creatinine Ratio 10.0 10-20 Random Glucose 63 70-99 mg/dl Calcium Level 8.5 8.5-10.1 mg/dl Total Bilirubin 1.4 0.2-1 mg/dl Aspartate Amino Transf (AST/SGOT) 14 15-37 U/L Alanine Aminotransferase (ALT/SGPT) 21 12-78 U/L Alkaline Phosphatase 93 45-117 U/L Total Protein 6.3 6.4-8.2 gm/dl Albumin 2.4 3.4-5.0 gm/dl Globulin 3.9 2.5-4.0 gm/dl Albumin/Globulin Ratio 0.6 0.9-2 Amylase Level 246 25-115 U/L Lipase 314 73-393 U/L Bedside Glucose 66 90 70-90 mg/dl Lab Interpretation Lab Interpretation: labs were reviewed Diagnostic Radiology Diagnostic Radiology RUQ U/S with gallstones and dilated CBD CT scan c/w acute pancreatitis MRCP with no evidence of CBD stone Impression Assessment and Plan Assessment and Plan 21 yr old recently female with resolving gallstone pancreatitis. Lab values are now near normal. Discussed laparoscopic cholecystectomy with IOC. Risks of bleeding, infection, conversion to open, postop diarrhea, postop intolerance to foods, need for ercp for retained stone all discussed. She consents to proceed. Will make npo after midnight and try to get her case done tomorrow. Expected overnight hospital stay and 1-2 wk recovery period reviewed.
[2016-11-11 23:10] VITALS: BP 122/69; PULSE 66; TEMP 36.8; O2SAT 96
[2016-11-12] VITALS (8 sets, daily range): BP systolic 117–166; BP diastolic 68–93; PULSE 54–67; TEMP 36.4–36.8; O2SAT 93–98
[2016-11-12] MEDS: PIPERACILL/TAZOBAC IV 4.5 GM in DEXTROSE 5% 100ML IV SCH ×3 (05:55→22:34)
[2016-11-12 07:04] LABS: BASO % 0.1 %; BASO ABS # 0.01 K/uL (0-0.2); COMPLETE YES; EOS % 5.4 %; HEMATOCRIT 32.8 % (37-47); IG% 0.1 %; LYMPH % 25.8 %; LYMPH ABS # 1.93 K/uL (1.2-3.4); MEAN CELL VOLUME 83.9 fL (80-100); MEAN CORPUSCULAR HEMOGLOBIN 27.1 pg (25-34); MEAN CORPUSCULAR HGB CONC 32.3 g/dl (32-36); MEAN PLATELET VOLUME 11.1 fL (7.4-10.4); MONO % 9.5 %; NEUT % 59.1 %; PLATELET COUNT 249 K/uL (130-400); RED BLOOD COUNT 3.91 M/uL (4.2-5.4); WHITE BLOOD COUNT 7.47 K/uL (4.8-10.8)
[2016-11-12 07:44] LABS: ALB/GLOB RATIO 0.6 (0.9-2); ALKALINE PHOSPHATASE 89 U/L (45-117); ALT/SGPT 20 U/L (12-78); AMYLASE 123 U/L (25-115); BLOOD UREA NITROGEN 3 mg/dl (7-18); BUN/CREATININE RATIO 4.3 (10-20); CALCIUM 8.7 mg/dl (8.5-10.1); CARBON DIOXIDE 28 mmol/L (21-32); CHLORIDE 108 mmol/L (98-107); CREATININE 0.67 mg/dl (0.60-1.20); GLUCOSE 81 mg/dl (70-99); SODIUM 145 mmol/L (136-145)
[2016-11-12] MEDS: ENOXAPARIN 40 MG/0.4 ML SYR SQ SCH (08:00)
[2016-11-12 08:41] LABS: POTASSIUM 3.5 mmol/L (3.5-5.1)
[2016-11-12 08:46] LABS: MAGNESIUM 2.1 mg/dl (1.8-2.4)
[2016-11-12] MEDS ORDERED: FENTANYL CITRATE INJ 50 MCG/1 ML 2 ML VIAL IV PRN (10:30)
[2016-11-12] MEDS ORDERED: ATROPINE SULFATE 0.1 MG/ML 5ML SYR IV PRN (10:30)
[2016-11-12] MEDS ORDERED: ONDANSETRON INJ 2 MG/ML 2 ML VIAL IV PRN (10:30)
[2016-11-12] MEDS ORDERED: EpHEDrine SULFATE INJ 50 MG/ML AMP IV PRN (10:30)
[2016-11-12] MEDS ORDERED: EpHEDrine SULFATE INJ 50 MG/ML AMP ONE (13:33)
[2016-11-12] MEDS ORDERED: PHENYLEPHRINE HCL INJ 10 MG/ML VIAL ONE (13:33)
[2016-11-12] MEDS ORDERED: SUCCINYLCHOLINE CHLORIDE 20 MG/ML 10 ML VIAL IV ONE (13:33)
[2016-11-12] MEDS ORDERED: NEOSTIGMINE METHYLSULFATE 5 MG/5 ML SYR ONE (13:33)
[2016-11-12] MEDS ORDERED: LIDOCAINE HCL 2% 2 ML VIAL (20MG/ML) ONE (13:33)
[2016-11-12] MEDS ORDERED: DEXAMETHASONE SOD INJ 4 MG/ML VIAL ONE ×2 (13:33→14:23)
[2016-11-12] MEDS ORDERED: ROCURONIUM BROMIDE 10 MG/ML 5 ML VIAL ONE (13:33)
[2016-11-12] MEDS ORDERED: ONDANSETRON INJ 2 MG/ML 2 ML VIAL ONE (13:33)
[2016-11-12] MEDS ORDERED: PROPOFOL IV EMULSION 10 MG/ML 20 ML VIAL IV ONE ×2 (13:33→14:23)
[2016-11-12] MEDS ORDERED: GLYCOPYRROLATE INJ 0.2 MG/ML VIAL ONE (13:33)
[2016-11-12] MEDS ORDERED: MIDAZOLAM HCL 1 MG/ML 2ML VIAL ONE (13:34)
[2016-11-12] MEDS ORDERED: FENTANYL CITRATE INJ 50 MCG/1 ML 2 ML VIAL ONE ×3 (13:34→15:40)
[2016-11-12] MEDS ORDERED: SCOPOLAMINE 1.5 MG TDSY TD ONE (13:38)
[2016-11-12] MEDS ORDERED: BUPIVACAINE 0.5 % 5 MG/1 ML MPF 30ML VIAL ONE ×2 (13:56→14:12)
[2016-11-12] MEDS ORDERED: LABETALOL HCL IV 5 MG/ML 20ML ONE (14:13)
[2016-11-12] MEDS ORDERED: CONRAY 60% 50 ML VIAL INSTIL ONE (15:02)
--- NOTE | 2016-11-12 15:26 | DIAGNOSTIC IMAGING REPORT ---
INTRAOPERATIVE CHOLANGIOGRAM CLINICAL HISTORY: Cholangiogram. COMPARISON STUDY: MRCP November 09, 2016. FLUOROSCOPY TIME: 31 seconds. FINDINGS: 4 intraoperative fluoroscopic images were obtained during an intraoperative cholangiogram. These images demonstrate stable biliary ductal dilatation. A filling defect within the proximal common bile duct is noted. No filling defects within the distal common bile duct are noted. No contrast is noted within the duodenum. Extraluminal contrast is noted within the operative bed. IMPRESSION: 1. Round filling defect within the proximal common bile duct. This may reflect a balloon. A calculus could appear similar although is considered less likely. Correlation with procedure is recommended. 2. Extraluminal contrast within the operative bed, a nonspecific finding intraoperatively. 3. No contrast within the duodenum. Electronically signed by: Shiva Dodd M.D. 11/12/2016 3:25 PM Dictated Date/Time: 11/12/2016 3:19 PM
--- NOTE | 2016-11-12 15:27 | [facility] Post Operative Brief Note ---
Immediate Operative Summary Operative Date Nov 12, 2016. Pre-Operative Diagnosis gallstone pancreatitis Post-Operative Diagnosis SAME PREOP Procedure(s) Performed LAPAROSCOPIC CHOLECYTITIS WITH CHOLANGIOGRAM Surgeon DR.MONA ATKINS President/[employer] Surgeon(s) Jr AVILA RN Estimated Blood Loss 5ml Findings dilated cbd but no stones seen on IOC Fluids (cc crystalloids) 1300 cc Specimens GALL BLADDER Drains none Anesthesia GET Complication(s) None Disposition Recovery Room / PACU
[2016-11-12] MEDS ORDERED: OXYCODONE/ACETAMINOPHEN 5-325 TAB PO PRN (15:30)
--- NOTE | 2016-11-12 15:34 | Discharge Instructions ---
Discharge Instructions Admission Reason for Admission: Acute Pancreatitis Discharge Discharge Diagnosis / Problem: gallstone pancreatitis Discharge Goals Goal(s): Decrease discomfort Activity Recommendations Activity Limitations: resume your previous activity (walking/ stairs OK today) Lifting Limitations: no more than 10 pounds (for 2 wks) Exercise/Sports Limitations: until after follow-up appointment May Resume Sexual Activity: after follow-up appointment Shower/Bathe: tomorrow (remove outer gauze dressings in 24 hrs, leave steristrips for 7-10 days) Driving or Machine Use: resume 3 days after discharge (if off narcotics) . Current Hospital Diet Patient's current hospital diet: Full Liquid Diet Discharge Diet Recommended Diet: Low Fat Diet (for 4-6 wks. soups and liquids initially if bloating persists) Procedures Procedures Performed: LAPAROSCOPIC CHOLECYTITIS WITH CHOLANGIOGRAM Pending Studies Studies pending at discharge: no Laboratory Results Lipid Panel Test 11/09/16 06:36 Range/Units Triglycerides Level 101 0-150 mg/dl Cholesterol Level 156 0-200 mg/dl HDL Cholesterol 46 mg/dl Cholesterol/HDL Ratio 3.4 LDL Cholesterol, Calculated 90 mg/dl Medical Emergencies . Who to Call and When: Medical Emergencies: If at any time you feel your situation is an emergency, please call 911 immediately. . Non-Emergent Contact Non-Emergency issues call your: Surgeon Contact Number: [phone] to schedule a postop appt for 2 wks Call Non-Emergent contact if: temperature is above 101.5, your pain is worsening, wound has increased drainage, wound has increased redness, wound has increased pain . "Provider Documentation" section prepared by Radha Henry. VTE Core Measure Inpt VTE Proph given/why not?: Enoxaparin (Lovenox)SQ
--- NOTE | 2016-11-12 15:50 | Anesthesiology Progress Note ---
Anesthesia Post Op Note Date & Time Nov 12, 2016 at 15:50 Vital Signs Vital Signs Past 12 Hours Date Time Temp Pulse Resp B/P Pulse Ox O2 Delivery O2 Flow Rate FiO2 11/12/16 09:47 Room Air 11/12/16 07:17 36.8 60 16 117/68 98 Room Air Notes Mental Status: alert / awake / arousable, participated in evaluation Pt Amnestic to Procedure: Yes Nausea / Vomiting: adequately controlled Pain: adequately controlled Airway Patency, RR, SpO2: stable & adequate BP & HR: stable & adequate Hydration State: stable & adequate Anesthetic Complications: no major complications apparent
--- NOTE | 2016-11-12 16:35 | OPERATIVE REPORT ---
DATE OF OPERATION: 11/12/2016 PREOPERATIVE DIAGNOSIS: Gallstone pancreatitis. POSTOPERATIVE DIAGNOSIS: Same. OPERATIVE PROCEDURE: Laparoscopic cholecystectomy with cholangiogram. SURGEON: Dr. Radha Henry. ESTIMATED BLOOD LOSS: 5 mL. IV FLUIDS: 1300 mL. ANESTHESIA: General endotracheal anesthesia. DRAINS: None. SPECIMEN: Appendix. COMPLICATIONS: None. OPERATIVE FINDINGS: Distended gallbladder, evidence of edematous change around area of pancreatic head, normal IOC with the exception of a dilated common bile duct but no evidence of stones. INDICATIONS: Ms. Benjamin is a 21-year-old recently woman who presented with gallstone pancreatitis. Her pancreatic enzymes normalized. She was tolerating a diet. She desires to have her gallbladder removed during this admission. She was consented regarding cholecystectomy and cholangiogram. She had a preoperative MRCP which was negative. PROCEDURE IN DETAIL: The patient was on Zosyn preoperatively. After the induction of general endotracheal anesthesia, she was placed in sequential compression devices. Her abdomen was sterilely prepped and draped. She was positioned in Trendelenburg. A supraumbilical incision was made and a Veress needle was placed into the peritoneal cavity. This was tested with the saline drop test. Initial pressure was 2 mmHg and this was taken up to 15 mmHg. A 5 mm trocar was placed. Three additional trocars were placed under direct vision, an 11 in the epigastrium and two 5s in the right side of the abdomen. The patient was put in reverse Trendelenburg. The gallbladder was grasped and retracted over the liver. Dissection was begun around the triangle of Calot. There was a significant edematous change located around the pancreatic head. The gallbladder was carefully dissected, so that both the cystic artery and cystic duct could be visible. The cystic artery was coursing anteriorly over the cystic duct. The artery was doubly clipped on the remaining side, similarly clipped on the gallbladder side and divided. The cystic duct was identified and critical view seen anteriorly and posteriorly. Two clips were placed on the gallbladder side and a ductotomy created. There were stones visible in the distal cystic duct. These were milked out. A cholangiocatheter was passed and cholangiogram obtained. Initial cholangiogram showed free extravasation of contrast and on the third try, the cholangiocatheter was well into the common duct and a cholangiogram was obtained which showed flow into the duodenum and no evidence of any stones. The cholangiocatheter was removed and 3 clips were placed distal to the ductotomy and the ductotomy divided. The gallbladder was dissected off the liver bed without difficulty. This was placed in an Endobag and removed through the epigastric incision. There was no spillage of stones. The abdomen was irrigated and suctioned clear. Hemostasis was noted to be present. Local anesthesia was injected into all the incisions in the form of 0.5% Marcaine. The epigastric incision was closed with 0 Vicryl stitch placed with a Veress needle technique as well as 0 Vicryl placed anteriorly. The skin of all 4 incisions closed with running subcuticular 4-0 Vicryl sutures. Steri-Strip and sterile dressings were applied. She was awakened and taken to recovery in stable condition. I attest to the content of the Intraoperative Record and any orders documented therein. Any exceptio ns are noted below.
[2016-11-12] MEDS: MoRPHine SULFATE 4 MG/ML 1 ML CARP\\VIAL IV PRN ×3 (16:40→20:54)
--- NOTE | 2016-11-12 19:02 | Hospitalist Progress Note ---
Hospitalist Progress Note Date of Service Nov 12, 2016. Subjective Pt evaluation today including: conversation w/ patient, conversation w/ family , physical exam, chart review, lab review, review of studies, review of inpatient medication list Patient was seen just as she returned from the OR. She was still sleepy a bit. She was very pleased to be able to have her surgery in a timely fashion. She has no complaints or concerns. Additional Comments: A 10 system review was performed and all were negative. Positives were placed in the subjective section. Objective Vital Signs Date Time Temp Pulse Resp B/P Pulse Ox O2 Delivery O2 Flow Rate FiO2 11/12/16 18:30 36.4 65 17 141/87 96 Room Air 11/12/16 17:30 36.4 64 17 132/85 98 Nasal Cannula 2.0 11/12/16 17:00 58 18 141/77 98 Nasal Cannula 3.0 11/12/16 16:49 Nasal Cannula 3.0 11/12/16 16:45 94 Nasal Cannula 3.0 11/12/16 16:30 36.6 67 18 166/93 94 Nasal Cannula 3.0 11/12/16 16:15 36.4 54 16 119/53 99 Nasal Cannula 3 11/12/16 16:00 55 16 124/76 99 Nasal Cannula 3 11/12/16 15:50 60 16 124/63 99 Nasal Cannula 3 11/12/16 15:40 77 16 119/61 99 Mask 10 11/12/16 15:31 36.9 79 16 124/59 95 Mask 10 11/12/16 09:47 Room Air 11/12/16 07:17 36.8 60 16 117/68 98 Room Air 11/11/16 23:45 Room Air 11/11/16 23:10 36.8 66 14 122/69 96 Room Air Physical Exam Notes: GEN: Awake, alert, and oriented x 3. Not in acute distress HEENT: Tm's intact, no inflammation, EOMI, PERRLA, MMM Neck: Soft, supple Lungs: CTA b/l, no r/r/w Heart: REG, nrl S1S2 without murmurs, rubs or gallops Abdomen: Deferred exam due to fresh post-op. EXT: No C/C/E NEURO: CN's II-XII grossly intact, non-focal Skin: warm, dry, no rashes PSYCH: pleasant, cooperative. Laboratory Results Last 24 Hours Test 11/12/16 06:45 11/12/16 08:15 White Blood Count 7.47 K/uL Red Blood Count 3.91 M/uL Hemoglobin 10.6 g/dL Hematocrit 32.8 % Mean Corpuscular Volume 83.9 fL Mean Corpuscular Hemoglobin 27.1 pg Mean Corpuscular Hemoglobin Concent 32.3 g/dl Platelet Count 249 K/uL Mean Platelet Volume 11.1 fL Neutrophils (%) (Auto) 59.1 % Lymphocytes (%) (Auto) 25.8 % Monocytes (%) (Auto) 9.5 % Eosinophils (%) (Auto) 5.4 % Basophils (%) (Auto) 0.1 % Neutrophils # (Auto) 4.41 K/uL Lymphocytes # (Auto) 1.93 K/uL Monocytes # (Auto) 0.71 K/uL Eosinophils # (Auto) 0.40 K/uL Basophils # (Auto) 0.01 K/uL RDW Standard Deviation 44.5 fL RDW Coefficient of Variation 14.5 % Immature Granulocyte % (Auto) 0.1 % Immature Granulocyte # (Auto) 0.01 K/uL Erythrocyte Sedimentation Rate 63 mm/hr Sodium Level 145 mmol/L Potassium Level mmol/L 3.5 mmol/L Chloride Level 108 mmol/L Carbon Dioxide Level 28 mmol/L Anion Gap 9.0 mmol/L Blood Urea Nitrogen 3 mg/dl Creatinine 0.67 mg/dl Est Creatinine Clear Calc Drug Dose 153.5 ml/min Estimated GFR () 144.6 Estimated GFR (Non- 124.8 BUN/Creatinine Ratio 4.3 Random Glucose 81 mg/dl Calcium Level 8.7 mg/dl Magnesium Level mg/dl 2.1 mg/dl Total Bilirubin 0.8 mg/dl Aspartate Amino Transf (AST/SGOT) U/L 12 U/L Alanine Aminotransferase (ALT/SGPT) 20 U/L Alkaline Phosphatase 89 U/L Total Protein 6.6 gm/dl Albumin 2.5 gm/dl Globulin 4.1 gm/dl Albumin/Globulin Ratio 0.6 Amylase Level 123 U/L Lipase 251 U/L Assessment and Plan 1) Pancreatitis - Lipase continued to be normal today. I argue this does not need to be evaluated any longer. 2) Symptomatic Cholelithiasis - POD #0 s/p lap basim. 3) UTI as outpatient - IV Zosyn ordered. 4) DVT prophylaxis - TEDs, SCDs, Sub-q lovenox. Discharge to home based on usual post lap basim procedure. Discharge planning: home
[2016-11-12] MEDS: OXYCODONE/ACETAMINOPHEN 5-325 TAB PO PRN (19:39)
[2016-11-13 03:10] VITALS: BP 141/78; PULSE 47; TEMP 36.5; O2SAT 96
[2016-11-13] MEDS: PIPERACILL/TAZOBAC IV 4.5 GM in DEXTROSE 5% 100ML IV SCH ×3 (05:23→22:18)
[2016-11-13] MEDS: OXYCODONE/ACETAMINOPHEN 5-325 TAB PO PRN ×2 (05:28→18:02)
[2016-11-13 07:12] VITALS: BP 102/55; PULSE 45; TEMP 36.6; O2SAT 94
[2016-11-13] MEDS: ENOXAPARIN 40 MG/0.4 ML SYR SQ SCH (08:23)
--- NOTE | 2016-11-13 10:07 | Progress Note ---
Subjective Date of Service: Nov 13, 2016. Subjective Pt evaluation today including: conversation w/ patient, physical exam, chart review, lab review, review of studies, review of inpatient medication list Patient has not had flatus or BM. Ate breakfast and tolerated well. Now pumping breast milk. NO fevers, no chest pain, no sob. Problem List Medical Problems: (1) Acute pyelonephritis Status: Acute (2) Biliary colic Status: Acute (3) Gall stone pancreatitis Status: Acute (4) RUQ abdominal pain Status: Acute Review of Systems All Other Systems: Reviewed and Negative Medications Acetaminophen (Tylenol Tab) 650 mg Q4H PRN PO Last administered on 11/11/16 11:59; Admin Dose 650 MG; Start 11/09/16 at 00:30; Stop 12/09/16 at 00:29 Al Hydrox/Mg Hydrox/Simethicone (Maalox Max Susp) 15 ml Q4H PRN PO; Start 11/09 at 00:30; Stop 12/09/16 at 00:29 Enoxaparin Sodium (Lovenox Inj) 40 mg Q24H SQ Last administered on 11/13/16 08: 23; Admin Dose 40 MG; Start 11/09/16 at 08:00; Stop 12/09/16 at 07:59 Magnesium Hydroxide (Milk Of Magnesia Susp) 30 ml Q6H PRN PO; Start 11/09/16 at 00:30; Stop 12/09/16 at 00:29 Morphine Sulfate 4 mg 4 mg Q2H PRN IV Last administered on 11/12/16 20:54; Admin Dose 4 MG; Start 11/09/16 at 00:45; Stop 11/23/16 at 00:44 Ondansetron HCl (Zofran Inj) 4 mg Q6H PRN IV; Start 11/09/16 at 00:30; Stop at 00:29 Oxycodone/ Acetaminophen (Percocet 5-325mg Tab) 1 tab Q4H PRN PO; Start at 15:30; Stop 11/26/16 at 15:29 Oxycodone/ Acetaminophen (Percocet 5-325mg Tab) 2 tab Q4H PRN PO Last administered on 11/13/16 05:28; Admin Dose 2 TAB; Start 11/12/16 at 15:30; Stop 11/26/16 at 15:29 Piperacillin Sod/ Tazobactam Sod (Consult) 1 ea UD PRN N/A; Start 11/09/16 at 05:15; Stop 12/09/16 at 05:14 Piperacillin Sod/ Tazobactam Sod/ Dextrose (Zosyn Iv/D5 100ml) 120 ml @ 30 mls/ hr Q8H IV Last administered on 11/13/16t 05:23; Admin Dose 30 MLS/HR; Start at 06:00; Stop 11/19/16 at 05:59 Polyethylene (Miralax Powder Packet) 17 gm DAILY PRN PO; Start 11/09/16 at 00: 30; Stop 12/09/16 at 00:29 Objective Vital Signs Date Time Temp Pulse Resp B/P Pulse Ox O2 Delivery O2 Flow Rate FiO2 11/13/16 07:12 36.6 45 16 102/55 94 Room Air 11/13/16 03:10 36.5 47 16 141/78 96 Room Air 11/12/16 22:56 36.6 54 16 150/74 93 Room Air 11/12/16 19:30 36.6 61 17 135/84 95 Room Air 11/12/16 19:00 Room Air 11/12/16 18:30 36.4 65 17 141/87 96 Room Air 11/12/16 17:30 36.4 64 17 132/85 98 Nasal Cannula 2.0 11/12/16 17:00 58 18 141/77 98 Nasal Cannula 3.0 11/12/16 16:49 Nasal Cannula 3.0 11/12/16 16:45 94 Nasal Cannula 3.0 11/12/16 16:30 36.6 67 18 166/93 94 Nasal Cannula 3.0 11/12/16 16:15 36.4 54 16 119/53 99 Nasal Cannula 3 11/12/16 16:00 55 16 124/76 99 Nasal Cannula 3 11/12/16 15:50 60 16 124/63 99 Nasal Cannula 3 11/12/16 15:40 77 16 119/61 99 Mask 10 11/12/16 15:31 36.9 79 16 124/59 95 Mask 10 Physical Exam Comments: nad, aox3, speech fluent eomi, perrl, anicteric s1 s2 rrr, no m/r/g ctab no w/r/r abd soft nt/nd +BS no LE edema cn2-12 grossly intact without facial drooping Assessment and Plan 1. Acute gallstone pancreatitis - trig wnl, no electrolyte abnormalities - s/p lap basim POD#1 - pain adequately controlled - tolerating po intake - will discharge once bowel function improved, advised on ambulation 2. Acute cholecystitis - POD#1 lap basim - pain regimen, has vicodin at home - bowel regimen if needed 3. UTI - would cont Bactrim for 4 more days, still has bactrim at home 4. dvt ppx Continued [facility] stay due to: other (bowel function) Discharge planning: home
[2016-11-13] MEDS ORDERED: SENN-65 PO (10:19)
--- NOTE | 2016-11-13 10:30 | Pharmacy Progress Note ---
Pharmacy Antibiotic Prog Note Date of Service: Nov 13, 2016. Subjective: The patient is currently receiving Zosyn 4.5gm IV every 8 hours - extended infusion dosing (each dose is being given over 4hrs) The patient is currently on day # 6 of Antibiotic IV therapy. Objective: Height (Feet): 5 Height (Inches): 3.00 Weight (Kilograms): 106.000 Micro Results: Item Value Date Time Blood Culture - Preliminary Resulted 11/08/16 2338 Blood NO GROWTH TO DATE. Blood Culture - Preliminary Resulted 11/08/16 2329 Blood NO GROWTH TO DATE. Urine Culture - Final Complete 11/08/16 0950 Urine , Clean Catch MORE THAN THREE TYPES OF ORGANISMS MN... Assessment & Plan: 21yo female receiving IV Zosyn (currently on day 6) for acute gallstone pancreatitis, s/p lap basim. Pt also diagnosed with UTI [facility], however UA c/s only contained high amounts of normal skin ryanne. Pt received bactrim for outpatient treatment of UTI - inpatient Zosyn use should have sufficiently treated this. PLAN: * BMI > 35, continue higher dosing of dosing Zosyn 4.5g IV Q 8hrs via extended infusion dosing per protocol * Consider d/c after 7-10 days of therapy. May not be necessary to continue to treat UTI with outpatient bactrim. Pharmacy will continue to follow and will adjust dose/frequency as necessary. Thank you
--- NOTE | 2016-11-13 13:17 | Surgery Progress Note ---
Surgery Progress Note Date of Service Nov 13, 2016. Subjective Post OP Day: 1 + ambulating, + diet, + feeling well, + pain controlled, No bowel movement, No flatus, No nausea, No vomiting Objective Vital Signs: Date Time Temp Pulse Resp B/P Pulse Ox O2 Delivery O2 Flow Rate FiO2 11/13/16 08:10 Room Air 11/13/16 07:12 36.6 45 16 102/55 94 Room Air 11/13/16 03:10 36.5 47 16 141/78 96 Room Air 11/12/16 22:56 36.6 54 16 150/74 93 Room Air 11/12/16 19:30 36.6 61 17 135/84 95 Room Air 11/12/16 19:00 Room Air 11/12/16 18:30 36.4 65 17 141/87 96 Room Air 11/12/16 17:30 36.4 64 17 132/85 98 Nasal Cannula 2.0 11/12/16 17:00 58 18 141/77 98 Nasal Cannula 3.0 11/12/16 16:49 Nasal Cannula 3.0 11/12/16 16:45 94 Nasal Cannula 3.0 11/12/16 16:30 36.6 67 18 166/93 94 Nasal Cannula 3.0 11/12/16 16:15 36.4 54 16 119/53 99 Nasal Cannula 3 11/12/16 16:00 55 16 124/76 99 Nasal Cannula 3 11/12/16 15:50 60 16 124/63 99 Nasal Cannula 3 11/12/16 15:40 77 16 119/61 99 Mask 10 11/12/16 15:31 36.9 79 16 124/59 95 Mask 10 General Appearance: WD/WN, no apparent distress Head: normocephalic, atraumatic Abdomen: non tender, non distended, soft Incision(s): clean, dry, intact Assessment & Plan POD # 1 S/p laparoscopic Cholecystectomy with IOC - vitals stable - tolerating regular diet - pain is minimal Patient can be discharged home today She will follow-up with Dr. Henry in one week , call [phone] Diaz has seen and examined patient, agrees with assessment and plan.
[2016-11-13 15:45] VITALS: BP 121/79; PULSE 53; TEMP 36.6; O2SAT 97
[2016-11-13 20:05] VITALS: BP 123/74; PULSE 82; TEMP 36.7; O2SAT 94
[2016-11-13 22:57] VITALS: BP 133/82; PULSE 82; TEMP 36.8; O2SAT 94
[2016-11-14] MEDS: OXYCODONE/ACETAMINOPHEN 5-325 TAB PO PRN ×2 (00:05→06:01)
[2016-11-14] MEDS: PIPERACILL/TAZOBAC IV 4.5 GM in DEXTROSE 5% 100ML IV SCH ×2 (05:33→14:09)
[2016-11-14 07:42] VITALS: BP 117/75; PULSE 82; TEMP 36.6; O2SAT 94
[2016-11-14] MEDS: ENOXAPARIN 40 MG/0.4 ML SYR SQ SCH (08:28)
[2016-11-14 09:04] LABS: CREATININE 0.68 mg/dl (0.60-1.20)
--- NOTE | 2016-11-14 10:21 | Progress Note ---
Subjective Date of Service: Nov 14, 2016. Subjective Pt evaluation today including: conversation w/ patient, physical exam, lab review, review of inpatient medication list Patient ambulating without any issues. Appetite is good. No flatus or BM as of yet. Minimal need of pain meds. Problem List Medical Problems: (1) Acute pyelonephritis Status: Acute (2) Biliary colic Status: Acute (3) Gall stone pancreatitis Status: Acute (4) RUQ abdominal pain Status: Acute Review of Systems All Other Systems: Reviewed and Negative Medications Acetaminophen (Tylenol Tab) 650 mg Q4H PRN PO Last administered on 11/11/16 11:59; Admin Dose 650 MG; Start 11/09/16 at 00:30; Stop 12/09/16 at 00:29 Al Hydrox/Mg Hydrox/Simethicone (Maalox Max Susp) 15 ml Q4H PRN PO; Start 11/09 at 00:30; Stop 12/09/16 at 00:29 Enoxaparin Sodium (Lovenox Inj) 40 mg Q24H SQ Last administered on 11/14/16 08: 28; Admin Dose 40 MG; Start 11/09/16 at 08:00; Stop 12/09/16 at 07:59 Magnesium Hydroxide (Milk Of Magnesia Susp) 30 ml Q6H PRN PO; Start 11/09/16 at 00:30; Stop 12/09/16 at 00:29 Morphine Sulfate 4 mg 4 mg Q2H PRN IV Last administered on 11/12/16 20:54; Admin Dose 4 MG; Start 11/09/16 at 00:45; Stop 11/23/16 at 00:44 Ondansetron HCl (Zofran Inj) 4 mg Q6H PRN IV; Start 11/09/16 at 00:30; Stop at 00:29 Oxycodone/ Acetaminophen (Percocet 5-325mg Tab) 1 tab Q4H PRN PO; Start at 15:30; Stop 11/26/16 at 15:29 Oxycodone/ Acetaminophen (Percocet 5-325mg Tab) 2 tab Q4H PRN PO Last administered on 11/14/16 06:01; Admin Dose 2 TAB; Start 11/12/16 at 15:30; Stop 11/26/16 at 15:29 Piperacillin Sod/ Tazobactam Sod (Consult) 1 ea UD PRN N/A; Start 11/09/16 at 05:15; Stop 12/09/16 at 05:14 Piperacillin Sod/ Tazobactam Sod/ Dextrose (Zosyn Iv/D5 100ml) 120 ml @ 30 mls/ hr Q8H IV Last administered on 11/14/16 14:09; Admin Dose 30 MLS/HR; Start at 06:00; Stop 11/19/16 at 05:59 Polyethylene (Miralax Powder Packet) 17 gm DAILY PRN PO Last administered on 14:09; Admin Dose 17 GM; Start 11/09/16 at 00:30; Stop 12/09/16 at 00:29 Objective Vital Signs Date Time Temp Pulse Resp B/P Pulse Ox O2 Delivery O2 Flow Rate FiO2 11/14/16 08:10 Room Air 11/14/16 07:42 36.6 82 16 117/75 94 Room Air 11/13/16 23:40 Room Air 11/13/16 22:57 36.8 82 17 133/82 94 Room Air 11/13/16 20:05 36.7 82 19 123/74 94 Room Air 11/13/16 16:00 Room Air 11/13/16 15:45 36.6 53 14 121/79 97 Room Air Physical Exam Comments: nad, aox3, eomi, perrl s1 s2 rrr, no murmurs appreciated ctab no w/r/r abd soft, multiple lap surgical sites dressed with dried blood, +BS non- distended with minimal tenderness no LE edema cn2-12 grossly intact Laboratory Results Last 24 Hours Test 11/14/16 07:40 Creatinine 0.68 mg/dl Est Creatinine Clear Calc Drug Dose 151.2 ml/min Estimated GFR () 143.9 Estimated GFR (Non- 124.2 Assessment and Plan 1. Acute gallstone pancreatitis - trig wnl, no electrolyte abnormalities - s/p lap basim POD#2 - pain adequately controlled - tolerating po intake - no flatus or BM yet, will obtain AXR prior to aggressive bowel regimen 2. Acute cholecystitis - POD#2 lap basim - pain regimen, has vicodin at home - bowel regimen if needed 3. UTI - would cont Bactrim for 3 more days when discharged, still has bactrim at home 4. dvt ppx Continued [facility] stay due to: other (bowel function) Discharge planning: home
[2016-11-14 15:03] VITALS: BP 155/95; PULSE 74; TEMP 36.9; O2SAT 97
--- NOTE | 2016-11-14 15:53 | DIAGNOSTIC IMAGING REPORT ---
[facility] CLINICAL HISTORY: posse ileus pain COMPARISON STUDY: No previous studies for comparison. FINDINGS: The soft tissues, psoas shadows, renal outlines and intestinal gas pattern appear normal. There is no evidence for bowel obstruction. No abnormal abdominal calcifications are seen. IMPRESSION: Normal study. Electronically signed by: Francisco Javier Ayala M.D. 11/14/2016 3:51 PM Dictated Date/Time: 11/14/2016 3:51 PM
--- NOTE | 2016-11-14 16:37 | Surgery Progress Note ---
Surgery Progress Note Date of Service Nov 14, 2016. Subjective Post OP Day: 2 + ambulating, + diet, + feeling well, + pain controlled, No bowel movement, No flatus Objective Vital Signs: Date Time Temp Pulse Resp B/P Pulse Ox O2 Delivery O2 Flow Rate FiO2 11/14/16 15:03 36.9 74 18 155/95 97 Room Air 11/14/16 08:10 Room Air 11/14/16 07:42 36.6 82 16 117/75 94 Room Air 11/13/16 23:40 Room Air 11/13/16 22:57 36.8 82 17 133/82 94 Room Air 11/13/16 20:05 36.7 82 19 123/74 94 Room Air General Appearance: WD/WN, no apparent distress Abdomen: normal bowel sounds, non tender, non distended, soft Incision(s): clean, dry, intact Laboratory Results: Results Past 24 Hours Test 11/14/16 07:40 Range/Units Creatinine 0.68 0.60-1.20 mg/dl Est Creatinine Clear Calc Drug Dose 151.2 ml/min Estimated GFR () 143.9 Estimated GFR (Non- 124.2 Assessment & Plan s/p lap basim with IOC on Sunday. Doing well. No need to wait for return of bowel function prior to discharge. She is tolerating regular diet with no nausea and has good bowel tones on exam. Stable for discharge from surgical standpoint. Postop instructions reviewed. Will f/u in 2 wks.
--- NOTE | 2016-11-14 18:16 | Discharge Summary ---
Discharge Summary Date of Service Nov 14, 2016. Discharge Summary Admission Date: Nov 09, 2016 at 00:30 Discharge Date: Nov 13, 2016 Discharge Disposition: Home Principal Diagnosis: Acute gallstone pancreatitis Medication Reconciliation New Medications: Sennosides-Docusate Sodium (Senokot S) 1 Tab Tab 1 TAB PO BID PRN for Constipation for 15 Days, #30 TAB Continued Medications: Hydrocodone/Acetaminophen 5MG/325MG (Amorita 5MG/325MG) Tab 1-2 TABLET PO Q6 PRN for Pain, #12 TAB For Initial Treatment Sulfamethoxazole-Trimethoprim (Bactrim Ds 800MG/160MG) 1 Tab Tab 1 TAB PO BID for 10 Days, #20 TAB Hospital Course 21yo recent post- F who is admitted for abdominal pain with nausea/ vomiting and found to have pancreatitis from gallstone. Patient had lap basim, however, had trouble with bowel functioning post-op. Finally had flatus and BM and was able to discharge. 1. Acute gallstone pancreatitis - trig wnl, no electrolyte abnormalities - s/p lap basim POD#2 - pain adequately controlled - tolerating po intake - now with good bowel function 2. Acute cholecystitis - POD#2 lap basim - pain regimen, has vicodin at home - bowel regimen script provided 3. UTI - would cont Bactrim for 3 more days when discharged, still has bactrim at home 4. dvt ppx Total Time Spent: Greater than 30 minutes This includes examination of the patient, discharge planning, medication reconciliation, and communication with other providers. Discharge Instructions Please refer to the electronic Patient Visit Report (Discharge Instructions) for additional information.
[2016-11-14 18:49] VITALS: BP 155/95; PULSE 74; TEMP 36.9; O2SAT 97
== END 2016-11-14 19:30 | disposition home or self-care (01) | DRG 769 ==
LOC: ENRESERVTM → ENRESERVDT → C.EDB 20:52 → C.MSN 11-09 00:30
PROVIDERS: ADMIT Student in an Organized Health Care Education/Training Program; ATTEND Internal Medicine
PROC: BF130ZZ Fluoroscopy of Gallbladder and Bile Ducts using High Osmolar Contrast (ICD-10-PCS; principal; 2016-11-12 12:00)
PROC: 0FT44ZZ Resection of Gallbladder, Percutaneous Endoscopic Approach (ICD-10-PCS; principal; 2016-11-12 12:00)
DX: O99.63 Diseases of the digestive system complicating the puerperium (principal); K85.10 Biliary acute pancreatitis without necrosis or infection; Z68.41 Body mass index [BMI] 40.0-44.9, adult; N39.0 Urinary tract infection, site not specified; K80.00 Calculus of gallbladder with acute cholecystitis without obstruction; O86.20 Urinary tract infection following delivery, unspecified; O99.215 Obesity complicating the puerperium; E66.9 Obesity, unspecified; O99.03 Anemia complicating the puerperium; O90.89 Other complications of the puerperium, not elsewhere classified; D64.9 Anemia, unspecified; N28.1 Cyst of kidney, acquired

== ENCOUNTER → 2016-11-29 | Outpatient (CLI) | payer OTHER ==
[~2016-11-29] MED LIST changes: -PRENTAB26 PO; +SENN-65 PO; -SULF800T23 PO
== END | disposition home or self-care (01) ==
LOC: C.PAPS 09:07
PROVIDERS: ATTEND Obstetrics & Gynecology
DX: Z34.03 Encounter for supervision of normal first pregnancy, third trimester (principal)